=== PATIENT | female | born 1975 | race Caucasian/White ===

== ENCOUNTER 2017-09-22 06:07 | Inpatient (IN) | payer MEDICARE, MEDICAID ==
[2017-09-22] MEDS ORDERED: Acetaminophen 500 MG Tab PO ONE (07:00)
[2017-09-22] MEDS ORDERED: Scopolamine 1.5 MG Transdermal Patch TOP SCH (07:00)
[2017-09-22] MEDS ORDERED: Albuterol/Ipratropium 3.0-0.5 MG/3 ML Neb Soln NEB ONE (07:00)
[2017-09-22] MEDS ORDERED: Dexamethasone 4 MG/ML SDV ONE (07:05)
[2017-09-22] MEDS ORDERED: Rocuronium 50 MG/5 ML Vial ONE (07:05)
[2017-09-22] MEDS ORDERED: Ondansetron 4 MG/2 ML SDV ONE (07:05)
[2017-09-22] MEDS ORDERED: Glycopyrrolate 0.2 MG/ML 5 ML MDV ONE (07:05)
[2017-09-22] MEDS ORDERED: Propofol 200 MG/20 ML SDV ONE (07:05)
[2017-09-22] MEDS ORDERED: Succinylcholine 200 MG/10 ML MDV ONE (07:05)
[2017-09-22] MEDS ORDERED: Neostigmine Methylsulfate 1 MG/ML 5 ML Syringe ONE (07:05)
[2017-09-22] MEDS ORDERED: Meropenem 500 MG SDV ONE (07:09)
[2017-09-22] MEDS ORDERED: Bupivacaine 0.5%/EPINEPHrine 1:200,000 50 ML MDV ONE (07:09)
[2017-09-22] MEDS ORDERED: Dextrose 5%-Lactated Ringers 1,000 ML IV SCH (07:15)
[2017-09-22] MEDS ORDERED: Doxycycline 100 MG in Sodium Chloride 0.9% 100 ML IV ONE (07:30)
[2017-09-22] MEDS ORDERED: HYDROmorphone/Normal Saline 15 MG/30 ML PCA IV PRN (07:31)
[2017-09-22] MEDS ORDERED: Naloxone 0.4 MG/ML SDV IV PRN (07:36)
[2017-09-22] MEDS ORDERED: Lidocaine 2% 100 MG/5 ML Syringe IVPUSH ONE (08:15)
[2017-09-22] MEDS ORDERED: Lidocaine 0.4%/D5W 2 GM/500 ML BAG IV SCH (08:15)
[2017-09-22] MEDS ORDERED: Ropivacaine 41 ML, Dexamethasone 8 MG, EPINEPHrine 0.4 MG, Sodium Chloride 0.9% 36.6 ML NERVRT SCH ×4 (08:15)
[2017-09-22] MEDS ORDERED: Ketamine 500 MG/5 ML MDV IV SCH (08:15)
[2017-09-22] MEDS ORDERED: hydrOXYzine HCl 100 MG/2 ML SDV IM ONE (09:45)
[2017-09-22] MEDS ORDERED: Labetalol 20 MG/4 ML Syringe IVPUSH PRN (11:00)
[2017-09-22] MEDS ORDERED: Ondansetron 4 MG/2 ML SDV IVPUSH PRN (11:00)
[2017-09-22] MEDS ORDERED: diphenhydrAMINE 50 MG/ML SDV IVPUSH PRN (11:00)
[2017-09-22] MEDS ORDERED: hydrOXYzine HCl 100 MG/2 ML SDV IM PRN (11:00)
[2017-09-22] MEDS ORDERED: Metoclopramide 10 MG/2 ML SDV IVPUSH PRN (11:00)
[2017-09-22] MEDS ORDERED: Albuterol/Ipratropium 3.0-0.5 MG/3 ML Neb Soln INH PRN (11:00)
[2017-09-22] MEDS: Albuterol/Ipratropium 3.0-0.5 MG/3 ML Neb Soln INH SCH ×3 (11:30→20:09)
[2017-09-22] MEDS: Dextrose 5%-Lactated Ringers 1,000 ML IV SCH ×2 (11:43→22:17)
[2017-09-22] MEDS ORDERED: Pantoprazole 40 MG Vial IVPUSH SCH (13:00)
[2017-09-22] MEDS: Sodium Ferric Gluconate Cmplex 250 MG in Sodium Chloride 0.9% 100 ML IV SCH (13:50)
[2017-09-22] MEDS ORDERED: MVI, Adult with Vitamin K 10 ML, Thiamine 100 MG, Chromium/Copper/Mang/Selen/Zn 1 ML in... IV SCH ×4 (16:00)
[2017-09-22] MEDS: Acetaminophen Soln 650 MG/20.3 ML UD Cup PO SCH ×2 (16:26→21:11)
[2017-09-22] MEDS: Doxycycline 100 MG in Sodium Chloride 0.9% 100 ML IV SCH (18:16)
[2017-09-22] MEDS: Heparin Sodium 5,000 Units/ML Vial SUBCUT SCH (19:24)
[2017-09-22] MEDS: Nortriptyline 10 MG Cap PO SCH (20:13)
[2017-09-23] MEDS ORDERED: Iohexol 647 MG/ML 50 ML SDV PO STA (03:24)
[2017-09-23] MEDS: Dextrose 5%-Lactated Ringers 1,000 ML IV SCH ×2 (04:07→11:13)
[2017-09-23] MEDS: Acetaminophen Soln 650 MG/20.3 ML UD Cup PO SCH (04:08)
[2017-09-23] MEDS: Doxycycline 100 MG in Sodium Chloride 0.9% 100 ML IV SCH ×2 (05:44→18:04)
[2017-09-23] MEDS: Albuterol/Ipratropium 3.0-0.5 MG/3 ML Neb Soln INH SCH ×4 (07:10→21:25)
[2017-09-23] MEDS: Heparin Sodium 5,000 Units/ML Vial SUBCUT SCH ×2 (07:19→19:26)
[2017-09-23] MEDS: carBAMazepine 200 MG TAB.ER PO SCH (08:27)
[2017-09-23] MEDS: FLUoxetine 20 MG Cap PO SCH (08:27)
[2017-09-23] MEDS: SCOPOLAMINE PATCH CHECK TOP SCH (08:28)
--- NOTE | 2017-09-23 08:29 | PN ---
DATE OF SERVICE: 09/23/2017 SUBJECTIVE: Elizabeth is postop day #1. Her vital signs have been normal. Pain controlled, up ambulating. Oral intake 200. She has been on ice chips. TIMOTHY drain put out 10 mL of a pink serosanguineous drainage. Urine output 3700. REVIEW OF SYSTEMS: Remainder of review of systems negative for any pertinent positives and negatives. OBJECTIVE: GENERAL: Elizabeth Sosa is a 42-year-old female. VITAL SIGNS: TPR is 96.2, 68, 16, and blood pressure 117/60. HEENT: Negative. NECK: Supple. HEART: Regular rate and rhythm. LUNGS: Clear. ABDOMEN: Dressings dry and intact. Abdominal binder is on. TIMOTHY drain is as above. EXTREMITIES: SCDs are on, and there is no peripheral edema. ASSESSMENT: Exploratory laparotomy with revision of the JJ component of the Lennox-en-Y gastric bypass surgery, reduction of small bowel volvulus and closure of internal hernia for small bowel volvulus and fixed stricture of the JJ. Date of surgery, 09/22/2017; Maicol Polanco MD. PLAN: 1. Full liquid diet. 2. Discontinue Tylenol. 3. Decrease IV to 100 mL/hour. 4. We will evaluate p.r.n. or in a.m. Inez Swann PA-C /[id number]
--- NOTE | 2017-09-23 09:25 | CR ---
Status post Lennox-en-Y contrast within small bowel loops. These are evident within the pelvis. No colleen s leakage.
[2017-09-23] MEDS ORDERED: Pantoprazole 40 MG Tab.CR PO SCH (11:30)
[2017-09-23] MEDS: Sodium Ferric Gluconate Cmplex 250 MG in Sodium Chloride 0.9% 100 ML IV SCH (14:18)
[2017-09-23] MEDS ORDERED: MVI, Adult with Vitamin K 10 ML, Thiamine 100 MG, Chromium/Copper/Mang/Selen/Zn 1 ML in... IV SCH ×4 (16:00)
[2017-09-23] MEDS: Acetaminophen/oxyCODONE 325-5 MG Tab PO PRN (19:25)
[2017-09-23] MEDS: Nortriptyline 10 MG Cap PO SCH (21:20)
[2017-09-23] MEDS: Pantoprazole 40 MG Tab.CR PO SCH (21:26)
[2017-09-24] MEDS: Acetaminophen/oxyCODONE 325-5 MG Tab PO PRN ×3 (05:46→20:42)
[2017-09-24] MEDS: Albuterol/Ipratropium 3.0-0.5 MG/3 ML Neb Soln INH SCH ×4 (07:04→20:42)
[2017-09-24] MEDS: Heparin Sodium 5,000 Units/ML Vial SUBCUT SCH ×2 (08:07→20:36)
[2017-09-24] MEDS: carBAMazepine 200 MG TAB.ER PO SCH (08:08)
[2017-09-24] MEDS: FLUoxetine 20 MG Cap PO SCH (08:08)
[2017-09-24] MEDS: SCOPOLAMINE PATCH CHECK TOP SCH (08:08)
[2017-09-24] MEDS ORDERED: Cyanocobalamin (Vitamin B12) 1,000 MCG/ML SDV IM ONE (09:00)
[2017-09-24] MEDS: Magnesium Hydroxide 400 MG/5 ML Susp 30 ML Cup PO SCH ×2 (09:22→20:36)
[2017-09-24] MEDS: Bisacodyl 5 MG Tab PO SCH ×2 (09:22→20:36)
[2017-09-24] MEDS ORDERED: Ondansetron 4 MG Tab.DIS PO PRN (19:25)
[2017-09-24] MEDS: Nortriptyline 10 MG Cap PO SCH (20:36)
[2017-09-24] MEDS: Pantoprazole 40 MG Tab.CR PO SCH (20:36)
[2017-09-25] MEDS ORDERED: Scopolamine 1.5 MG Transdermal Patch TRDERM SCH (00:30)
[2017-09-25] MEDS ORDERED: Dextrose 5%-Lactated Ringers 1,000 ML IV SCH (00:30)
[2017-09-25] MEDS ORDERED: Sodium Chloride 0.9% 10 ML Syringe FLUSH PRN (00:34)
[2017-09-25] MEDS: Metoclopramide 10 MG/2 ML SDV IVPUSH SCH ×5 (00:59→23:03)
[2017-09-25] MEDS ORDERED: HYDROmorphone/Normal Saline 15 MG/30 ML PCA IV SCH (04:00)
[2017-09-25] MEDS: Ondansetron 4 MG/2 ML SDV IVPUSH PRN ×2 (04:26→12:34)
[2017-09-25] MEDS ORDERED: Naloxone 0.4 MG/ML SDV IV PRN (07:15)
[2017-09-25] MEDS ORDERED: HYDROmorphone/Normal Saline 15 MG/30 ML PCA IV PRN (07:15)
[2017-09-25] MEDS: Albuterol/Ipratropium 3.0-0.5 MG/3 ML Neb Soln INH SCH ×4 (07:35→20:55)
[2017-09-25] MEDS: Heparin Sodium 5,000 Units/ML Vial SUBCUT SCH ×2 (07:46→20:55)
[2017-09-25] MEDS: FLUoxetine 20 MG Cap PO SCH (09:47)
[2017-09-25] MEDS: Magnesium Hydroxide 400 MG/5 ML Susp 30 ML Cup PO SCH ×2 (09:48→20:47)
[2017-09-25] MEDS: SCOPOLAMINE PATCH CHECK TOP SCH (09:48)
[2017-09-25] MEDS: carBAMazepine 200 MG TAB.ER PO SCH (09:49)
[2017-09-25] MEDS: methylPREDNISolone Sodium Succinate 125 MG/2 ML SDV IVPUSH SCH ×2 (09:49→16:45)
--- NOTE | 2017-09-25 10:47 | PN ---
DATE OF SERVICE: 09/24/2017 The patient has been afebrile with stable vital signs. Oral intake has been fairly good. Her IV came out. We will switch over to oral Percocet for pain and we will get her in the shower today to get some bowel stimulation. She may be ready for discharge home tomorrow. Maicol Polanco MD /[id number]
[2017-09-25] MEDS: Dextrose 5%-Lactated Ringers 1,000 ML IV SCH ×2 (10:59→19:28)
[2017-09-25] MEDS: Bisacodyl 10 MG Supp RECTAL SCH ×2 (12:28→20:55)
[2017-09-25] MEDS: Bisacodyl 5 MG Tab PO SCH (16:49)
[2017-09-25] MEDS: Nortriptyline 10 MG Cap PO SCH (20:47)
[2017-09-25] MEDS: Pantoprazole 40 MG Tab.CR PO SCH (20:47)
[2017-09-25] MEDS ORDERED: Pantoprazole 40 MG Vial IVPUSH SCH (21:00)
[2017-09-26] MEDS: methylPREDNISolone Sodium Succinate 125 MG/2 ML SDV IVPUSH SCH ×3 (00:47→16:22)
[2017-09-26] MEDS: Metoclopramide 10 MG/2 ML SDV IVPUSH SCH ×3 (05:20→16:22)
[2017-09-26] MEDS: Heparin Sodium 5,000 Units/ML Vial SUBCUT SCH ×2 (07:39→21:08)
[2017-09-26] MEDS: Albuterol/Ipratropium 3.0-0.5 MG/3 ML Neb Soln INH SCH ×4 (07:48→21:15)
--- NOTE | 2017-09-26 08:41 | PN ---
DATE OF SERVICE: 09/26/2017 SUBJECTIVE: Elizabeth has had no further nausea. Did have a moderate-sized bowel movement. Oral intake yesterday was 300. Her last emesis was yesterday. She states her pain is controlled. She has been up ambulating. Denies any other associated signs and symptoms. OBJECTIVE: GENERAL: Elizabeth Sosa is a 42-year-old female. She is alert and orientated. Color pale. VITAL SIGNS: TPR 98.2, 50, 16. Blood pressure 101/59. HEENT: Negative. NECK: Supple. HEART: Regular rate and rhythm. LUNGS: Clear. ABDOMEN: Soft, slightly distended and normally tender. EXTREMITIES: SCDs are on and no peripheral edema. ASSESSMENT: Exploratory laparotomy with revision of the JJ component of the Lennox-en-Y gastric bypass surgery. Reduction of small bowel volvulus and closure of internal hernia for small bowel volvulus and fixed stricture of the JJ. Date of surgery 09/22/2017, Maicol Polanco MD. PLAN: 1. Sips of clear liquids. Gradually increase clear liquids as tolerated. 2. Discontinue Dulcolax suppository. 3. We will evaluate p.r.n. or in a.m. Inez Swann PA-C /[id number]
--- NOTE | 2017-09-26 08:53 | PN ---
DATE OF SERVICE: 09/25/2017 The patient has been afebrile with stable vital signs. Yesterday evening, she began having some nausea and then had two emeses of bilious material. This would imply at least a partial obstruction at the likely outlet of the new jejunojejunostomy, causing a backup of bile into the Lennox limb. Her abdominal x-ray does not show any massive distention or backup of air into the biliopancreatic limb or bypassed stomach. It shows a fair bit of air within the colon. Her abdomen otherwise is not overly distended and relatively soft. As I suspect, there is primarily backing up into the Lennox limb and will go onto just some ice chips for today for oral intake. I think we will try a course of Solu-Medrol IV to see if we can decrease some of the swelling at that anastomosis and repeat an abdominal x-ray tomorrow morning. We will give her a baseline IV rate of 125 mL at this point and recheck some labs in morning as well. Maicol Polanco MD /[id number]
--- NOTE | 2017-09-26 09:07 | OR ---
DATE OF PROCEDURE: 09/22/2017 PREOPERATIVE DIAGNOSIS: Probable small bowel volvulus. POSTOPERATIVE DIAGNOSES: 1. Small bowel volvulus with a fixed stricture at jejunojejunostomy. 2. Meckel's diverticulum with thin luminal base. OPERATIVE PROCEDURE: Exploratory laparotomy with: 1. Revision of jejunojejunostomy, component of Lennox-en-Y gastric bypass (34638). 2. Reduction of small bowel volvulus and closure of internal hernia (94048). 3. Meckel's diverticulectomy (26782). ANESTHESIA: General. PREHEMMER: Inez Swann PA-C, and LAKESHIA Almendarez. INDICATION FOR PROCEDURE: A 42-year-old female status post Lennox-en-Y gastric bypass, presenting with some chronic postprandial abdominal pain. A CT scan was obtained, which was suggestive of a small bowel volvulus. Plan is to proceed with an exploratory laparotomy and reduction of volvulus with bowel resection as indicated. Potential risks including bleeding, infection, possible recurrence of the problem over time, leaks from any GI tract closures that might be required, as well as possibility of cardiopulmonary, septic, or hemorrhagic complications leading to were discussed, and the patient wishes to proceed. DETAILS OF PROCEDURE: The patient was taken to the operating room and placed in a supine position. After general endotracheal anesthesia was induced, using ultrasound guidance, bilateral subcostal transversus abdominis plane blocks were placed using standard solution with continuous ultrasound guidance. A Elena catheter was inserted and then the abdomen prepped and draped. A midline incision from the umbilicus to roughly a handbreadth toward the xiphoid was then made and carried down through the skin and subcutaneous tissue and the midline fascia. Upon entering the peritoneal cavity, a significant portion of the small bowel was somewhat dusky in appearance with some obvious venous hypertension. The small bowel at this point was then identified at the ileocecal valve, and the volvulus was then gradually reduced. Once this was reduced, all the bowel appeared to be clearly viable. There was a fixed stricturing, due to probably some chronic angulation at the point where the Lennox limb entered the jejunojejunostomy. It was felt this area needed to be revised to avoid further problems with partial obstructive symptoms. The 3 components of the jejunojejunostomy were then divided with RAVI hill loads and the underlying mesentery with mesenteric loads and a section of small bowel and delivered from the field. The small bowel that had been the distalmost Lennox limb was then anastomosed to the small bowel that had been the origin of the common limb with a [id number] enteroenterostomy with internal firing of the Endo RAVI 60 mm stapler. The common opening was then closed transversely with the same stapler and the mesenteric defect then closed with a 3-0 Vicryl stitch. The new Lennox-en-Y jejunojejunostomy was then completed roughly 20 cm distal to the initial anastomosis with the same sequence of oksana. In this case, the mesenteric defect was closed with a 2-0 silk stitch, as this would be a closure that needed to be somewhat more permanent and otherwise prone to recurrent volvulus formation. During the course of the small bowel inspection, the patient was noted to have a Meckel's diverticulum with standard distance of around 2 feet from the ileocecal valve. This had a fairly thin base and was felt to be at risk for Meckel's diverticulitis over time. Given this, it was then divided flush with the underlying small bowel in a transverse orientation with no luminal narrowing of the primary course of small bowel, confirmed at the conclusion of its removal. This was done with a RAVI hill load as well. At that point, no further problems were noted. The limb lengths were at this point mapped out with the Lennox limb being 150 cm, the common limb 250 cm, and the biliopancreatic limb 80 cm. This was felt to be a satisfactory set up as far as the limb lengths, given the patient's desire to loose a little bit more in the way of weight and a total alimentary length now of around 400 cm. The midline fascia was then approximated with a #2 Vicryl stitch. The incision was then anesthetized at the fascia level with 0.5% Marcaine. A Charlie-Hopson drain was then placed through a stab wound inferior to the main incision and the incision then closed with 3-0 and 4-0 Vicryl stitch deep and oksana for the skin. Dressing was applied. The patient was taken to the recovery room in satisfactory condition. There were no evident complications. Physician mail handler assistant, Inez Swann, played an essential role in assisting in this case, helping to position the patient, retract structures as needed, as well as suturing and cutting sutures when indicated. Her presence improved patient safety and decreased the operative time. Maicol Polanco MD /[id number]
--- NOTE | 2017-09-26 09:27 | CR ---
Abdomen 2V AP Flat Upright CLINICAL HISTORY: Postop nausea and vomiting FINDINGS: No free air is identified. There is diffuse small bowel distention which is increased since the the study from 09/23/2017. There is contrast in the right colon which was ingested on 09/23/2017. Th ere are scattered air-fluid levels. Surgical drains are in place. No free air is identified. There is some patchy atelectasis at the left lung base. IMPRESSION: Status post recent X surgery. Small bowel distention with scattered air-fluid levels. This may represent postoperative ileus. Inter flavio small bowel obstruction is felt less likely. Previously ingested barium is in the right colon
[2017-09-26] MEDS: Magnesium Hydroxide 400 MG/5 ML Susp 30 ML Cup PO SCH ×2 (09:35→21:00)
[2017-09-26] MEDS: SCOPOLAMINE PATCH CHECK TOP SCH (09:36)
[2017-09-26] MEDS: FLUoxetine 20 MG Cap PO SCH (09:36)
[2017-09-26] MEDS: carBAMazepine 200 MG TAB.ER PO SCH (09:36)
--- NOTE | 2017-09-26 10:22 | CR ---
CHEST: 2 view CLINICAL HISTORY:Postop nausea and vomiting COMPARISON:None FINDINGS: There is a right perihilar density in the lower lobe which is likely subsegmental atelecta sis. There is some mild patchy density in the right suprahilar region which may represent infiltrate or atelectasis There is patchy left infrahilar density which may be atelectasis or infiltrate. There is some minimal left effusion. IMPRESSION: Right perihilar density likely subsegmental atelectasis Minimal right suprahilar density may represent atelectasis or infiltrate Left lower lobe density may represent atelectasis or pneumonic infiltrate. Short-term follow-up recommended
[2017-09-26] MEDS: Dextrose 5%-Lactated Ringers 1,000 ML IV SCH (11:20)
--- NOTE | 2017-09-26 11:44 | CR ---
Abdomen 2V AP Flat Upright CLINICAL HISTORY: Postop nausea and vomiting FINDINGS: There is persistent bibasilar airspace disease left greater than right. The no free air is identified. There is contrast seen throughout the colon. This is advanced since the prior day study. There is some mild nonspecific small bowel distention IMPRESSION: Decrease small bowel distention. Contrast is seen passing through the entire colon consis tent with resolving postop ileus Persistent bibasilar airspace disease similar to prior study
[2017-09-26] MEDS ORDERED: Pantoprazole 40 MG Vial IVPUSH SCH (21:00)
[2017-09-26] MEDS: Nortriptyline 10 MG Cap PO SCH (21:00)
[2017-09-27] MEDS: Metoclopramide 10 MG/2 ML SDV IVPUSH SCH ×3 (00:09→11:19)
[2017-09-27] MEDS: methylPREDNISolone Sodium Succinate 125 MG/2 ML SDV IVPUSH SCH ×2 (00:14→08:59)
[2017-09-27] MEDS: Dextrose 5%-Lactated Ringers 1,000 ML IV SCH ×2 (03:50→05:55)
--- NOTE | 2017-09-27 06:56 | PCM.SURGPN ---
- General Info Date of Service: 09/27/17 Date of Surgery/Procedure: 09/22/17 POD#: 5 Post-Op Diagnosis: VolVulus K56.2 Functional Status: Reports: Pain Controlled, Ambulating, Urinating - Review of Systems General: Reports: No Symptoms HEENT: Reports: No Symptoms Pulmonary: Reports: No Symptoms Cardiovascular: Reports: No Symptoms Genitourinary: Reports: No Symptoms Skin: Reports: No Symptoms Psychiatric: Reports: No Symptoms - Patient Data Vitals - Most Recent: Last Vital Signs Temp 99.0 F 09/27/17 04:03 Pulse 84 09/27/17 04:03 Resp 16 09/27/17 04:03 BP 114/67 09/27/17 04:03 Pulse Ox 96 09/27/17 04:03 Weight - Most Recent: 181 lb 9.587 oz I&O - Last 24 Hours: Intake & Output 09/26/17 09/26/17 09/27/17 14:59 22:59 06:59 Intake Total 957 665 0077 Output Total 2703 3 Balance 300 -2343 1495 Med Orders - Current: Current Medications Albuterol/Ipratropium (Duoneb 3.0-0.5 Mg/3 Ml) 3 ml INH QIDRT [facility] Last Admin: 09/26/17 21:15 Dose: 3 ml Albuterol/Ipratropium (Duoneb 3.0-0.5 Mg/3 Ml) 3 ml INH ASDIRECTED PRN PRN Reason: BREATHING Carbamazepine (Tegretol Er) 600 mg PO DAILY [facility] Last Admin: 09/26/17 09:36 Dose: 600 mg Fluoxetine HCl (Prozac) 20 mg PO DAILY [facility] Last Admin: 09/26/17 09:36 Dose: 20 mg Heparin Sodium (Porcine) (Heparin Sodium) 5,000 units SUBCUT Q12H [facility] Last Admin: 09/26/17 21:08 Dose: 5,000 units Hydromorphone HCl (Dilaudid [employer] 15 Mg In Ns 30 Ml) 0 mg IV ASDIRECTED PRN; Protocol PRN Reason: PAIN Hydroxyzine HCl (Vistaril) 75 - 100 mg IM Q4H PRN PRN Reason: pain Last Admin: 09/24/17 19:29 Dose: 100 mg Dextrose/Lactated Ringer's (Dextrose 5%-Lactated Ringers) 1,000 mls @ 125 mls/ hr IV ASDIRECTED [facility] Last Admin: 09/27/17 05:55 Dose: 125 mls/hr Labetalol HCl (Normodyne) 5 - 15 mg IVPUSH Q1H PRN PRN Reason: SBP over 160 OR DBP over 95 Magnesium Hydroxide (Milk Of Magnesia) 30 ml PO BID [facility] Last Admin: 09/26/17 21:00 Dose: Not Given Methylprednisolone Sodium Succinate (Solu-Medrol) 60 mg IVPUSH Q8H [facility] Last Admin: 09/27/17 00:14 Dose: 60 mg Metoclopramide HCl (Reglan) 10 mg IVPUSH Q6H [facility] Last Admin: 09/27/17 05:48 Dose: 10 mg Naloxone HCl (Narcan) 0.1 mg IV ASDIRECTED PRN PRN Reason: decreased respiratory rate Scopolamine Patch (Check) 1 each TOP DAILY [facility] Last Admin: 09/26/17 09:36 Dose: Not Given Nortriptyline HCl (Nortriptyline) 10 mg PO BEDTIME [facility] Last Admin: 09/26/17 21:00 Dose: Not Given Ondansetron HCl (Zofran Odt) 4 mg PO Q4H PRN PRN Reason: Nausea/Vomiting Last Admin: 09/24/17 19:36 Dose: 4 mg Ondansetron HCl (Zofran) 4 mg IVPUSH Q4H PRN PRN Reason: Nausea/Vomiting Last Admin: 09/25/17 12:34 Dose: 4 mg Pantoprazole Sodium (Protonix Iv) 40 mg IVPUSH BEDTIME [facility] Last Admin: 09/26/17 21:10 Dose: 40 mg Scopolamine (Transderm-Scop) 1.5 mg TRDERM Q72H [facility] Sodium Chloride (Saline Flush) 10 ml FLUSH ASDIRECTED PRN PRN Reason: Keep Vein Open Discontinued Medications Acetaminophen (Tylenol Extra Strength) 1,000 mg PO ONETIME ONE Stop: 09/22/17 07:01 Last Admin: 09/22/17 07:15 Dose: 1,000 mg Acetaminophen (Tylenol) 650 mg PO Q6H [facility] Last Admin: 09/23/17 04:08 Dose: Not Given Albuterol/Ipratropium (Duoneb 3.0-0.5 Mg/3 Ml) 3 ml NEB ONETIME ONE Stop: 09/22/17 07:01 Last Admin: 09/22/17 07:17 Dose: 3 ml Bisacodyl (Dulcolax) 10 mg PO BID [facility] Last Admin: 09/25/17 16:49 Dose: Not Given Bisacodyl (Dulcolax) 10 mg RECTAL BID [facility] Last Admin: 09/25/17 20:55 Dose: 10 mg Bupivacaine HCl/Epinephrine Bitart (Marcaine 0.5%/Epinephrine 1:200,000) Confirm Administered Dose 50 ml .ROUTE .STK-MED ONE Stop: 09/22/17 07:10 Last Admin: 09/22/17 09:00 Dose: 20 ml Ropivacaine 41 ml/Dexamethasone 8 mg/Epinephrine HCl 0.4 mg/ Sodium Chloride 36.6 ml 0 ml NERVRT ASDIRECTED [facility] Last Admin: 09/22/17 08:48 Dose: 80 syringe Cyanocobalamin (Vitamin B12) 1,000 mcg IM ONETIME ONE Stop: 09/24/17 09:01 Last Admin: 09/24/17 08:09 Dose: 1,000 mcg Dexamethasone (Dexamethasone) Confirm Administered Dose 4 mg .ROUTE .STK-MED ONE Stop: 09/22/17 07:06 Diphenhydramine HCl (Benadryl) 25 - 50 mg IVPUSH Q4H PRN PRN Reason: ITCHING Fentanyl Citrate (Fentanyl) Confirm Administered Dose 500 mcg .ROUTE .STK-MED ONE Stop: 09/22/17 07:07 Glycopyrrolate (Robinul) Confirm Administered Dose 1 mg .ROUTE .STK-MED ONE Stop: 09/22/17 07:06 Hydromorphone HCl (Dilaudid [employer] 15 Mg In Ns 30 Ml) 0 mg IV ASDIRECTED PRN; Protocol PRN Reason: Pain Last Admin: 09/22/17 07:48 Dose: 0.3 mg Hydromorphone HCl (Dilaudid Armed [employer] 15 Mg In Ns 30 Ml) 15 mg IV ASDIRECTED [facility]; Protocol Last Admin: 09/25/17 04:22 Dose: 15 mg Hydroxyzine HCl (Vistaril) 100 mg IM ONETIME ONE Stop: 09/22/17 09:46 Last Admin: 09/22/17 09:37 Dose: 100 mg Lidocaine HCl/Dextrose (Lidocaine 2 Gm/D5w 500 Ml) 2 gm in 500 mls @ 22.5 mls/ hr IV .[id number] [facility] Stop: 09/23/17 06:28 Last Admin: 09/22/17 11:43 Dose: 1.5 mg/min, 22.5 mls/hr Ketamine HCl 100 mg/ Sodium (Chloride) 100 mls @ 17.7 mls/hr IV ASDIRECTED [facility] Doxycycline Hyclate 100 mg/ (Sodium Chloride) 100 mls @ 100 mls/hr IV ONETIME ONE Stop: 09/22/17 08:29 Last Admin: 09/22/17 07:35 Dose: 100 mls/hr Linezolid (Zyvox) Confirm Administered Dose 300 mls @ as directed .ROUTE .STK- MED ONE Stop: 09/22/17 07:10 Dextrose/Lactated Ringer's (Dextrose 5%-Lactated Ringers) 1,000 mls @ 100 mls/ hr IV ASDIRECTED [facility] Last Admin: 09/22/17 07:35 Dose: 100 mls/hr Dextrose/Lactated Ringer's (Dextrose 5%-Lactated Ringers) 1,000 mls @ 100 mls/ hr IV ASDIRECTED [facility] Last Admin: 09/23/17 11:13 Dose: 100 mls/hr Doxycycline Hyclate 100 mg/ (Sodium Chloride) 100 mls @ 100 mls/hr IV Q12H [facility] Stop: 09/24/17 06:59 Last Admin: 09/23/17 18:04 Dose: 100 mls/hr Multivitamins/Minerals 10 ml/Thiamine HCl 100 mg/ Chromium/Copper/Manganese/ Seleni/Zn 1 ml/ Dextrose/Lactated Ringer's 1,012 mls @ 174.826 mls/hr IV DAILY@ 1600 [facility] Last Admin: 09/22/17 16:29 Dose: 174.826 mls/hr Ferric Sodium Gluconate Complex 250 mg/ Sodium Chloride 120 mls @ 60 mls/hr IV Q24H [facility] Stop: 09/23/17 15:59 Last Admin: 09/23/17 14:18 Dose: 60 mls/hr Multivitamins/Minerals 10 ml/Thiamine HCl 100 mg/ Chromium/Copper/Manganese/ Seleni/Zn 1 ml/ Dextrose/Lactated Ringer's 1,012 mls @ 100 mls/hr IV DAILY@ 1600 [facility] Last Admin: 09/23/17 17:56 Dose: 100 mls/hr Dextrose/Lactated Ringer's (Dextrose 5%-Lactated Ringers) 1,000 mls @ 100 mls/ hr IV ASDIRECTED [facility] Last Admin: 09/25/17 01:00 Dose: 100 mls/hr Iohexol (Omnipaque-300) 50 ml PO .ASDIRECTED [facility] Stop: 09/23/17 03:25 Last Admin: 09/23/17 03:37 Dose: 50 ml Ketamine HCl (Ketalar) 29 mg IV ASDIRECTED [facility] Lidocaine HCl (Xylocaine 2%) 100 mg IVPUSH ONETIME ONE Stop: 09/22/17 08:16 Last Admin: 09/22/17 23:52 Dose: Not Given Meropenem (Merrem) Confirm Administered Dose 500 mg .ROUTE .STK-MED ONE Stop: 09/22/17 07:10 Last Admin: 09/22/17 08:50 Dose: 500 mg Metoclopramide HCl (Reglan) 10 mg IVPUSH Q6H PRN PRN Reason: NAUSEA NOT CONTROL BY ZOFRAN Metoclopramide HCl (Reglan) 10 mg IVPUSH Q6H [facility] Last Admin: 09/25/17 05:39 Dose: 10 mg Miscellaneous Information (Remove Patch) 1 ea TRDERM ONETIME ONE Stop: 09/24/17 10:01 Last Admin: 09/24/17 09:22 Dose: Not Given Naloxone HCl (Narcan) 0.1 mg IV ASDIRECTED PRN PRN Reason: decreased respiratory rate Neostigmine Methylsulfate (Neostigmine) Confirm Administered Dose 5 mg .ROUTE .STK-MED ONE Stop: 09/22/17 07:06 Scopolamine Patch (Check) 1 each TOP DAILY [facility] Stop: 09/24/17 11:01 Last Admin: 09/24/17 08:08 Dose: Not Given Ondansetron HCl (Zofran) Confirm Administered Dose 4 mg .ROUTE .STK-MED ONE Stop: 09/22/17 07:06 Ondansetron HCl (Zofran) 4 mg IVPUSH Q4H PRN PRN Reason: Nausea/Vomiting Oxycodone/Acetaminophen (Percocet 325-5 Mg) 1 - 2 tab PO Q4H PRN PRN Reason: Pain Last Admin: 09/24/17 20:42 Dose: 2 tab Pantoprazole Sodium (Protonix Iv) 40 mg IVPUSH Q24H [facility] Last Admin: 09/22/17 13:50 Dose: 40 mg Pantoprazole Sodium (Protonix) 40 mg PO BEDTIME [facility] Last Admin: 09/25/17 20:47 Dose: Not Given Pantoprazole Sodium (Protonix Iv) 40 mg IVPUSH DAILY [facility] Last Admin: 09/25/17 21:43 Dose: 40 mg Propofol (Diprivan 20 Ml) Confirm Administered Dose 200 mg .ROUTE .STK-MED ONE Stop: 09/22/17 07:06 Rocuronium Tram (Zemuron) Confirm Administered Dose 50 mg .ROUTE .STK-MED ONE Stop: 09/22/17 07:06 Scopolamine (Transderm-Scop) 1.5 mg TOP Q72H [facility] Stop: 09/24/17 07:01 Last Admin: 09/22/17 07:17 Dose: 1.5 mg Scopolamine (Transderm-Scop) 1.5 mg TRDERM Q72H [facility] Last Admin: 09/25/17 00:58 Dose: 1.5 mg Succinylcholine Chloride (Quelicin) Confirm Administered Dose 200 mg .ROUTE .STK -MED ONE Stop: 09/22/17 07:06 - Exam General: Alert, Oriented, Cooperative, No Acute Distress HEENT: Pupils Equal, Mucous Membr. Moist/[place] Neck: Supple Lungs: Normal Respiratory Effort Cardiovascular: Regular Rate, Regular Rhythm GI/Abdominal Exam: Soft, Non-Tender Extremities: Normal Inspection, Normal Range of Motion Skin: Warm, Dry, Intact Neurological: No New Focal Deficit Psy/Mental Status: Alert, Normal Affect, Normal Mood - Problem List Review Problem List Initiated/Reviewed/Updated: Yes - My Orders Last 24 Hours: Active Orders 24 hr Category Date Time Status Pantoprazole [ProTONIX IV] Med 09/26/17 21:00 Active 40 mg IVPUSH BEDTIME Scopolamine [Transderm-Scop] Med 09/27/17 21:00 Active 1.5 mg TRDERM Q72H Medication Orders Albuterol/Ipratropium (Duoneb 3.0-0.5 Mg/3 Ml) 3 ml INH QIDRT [facility] Last Admin: 09/26/17 21:15 Dose: 3 ml Admin: 09/26/17 14:48 Dose: 3 ml Admin: 09/26/17 11:05 Dose: 3 ml Admin: 09/26/17 07:48 Dose: 3 ml Admin: 09/25/17 20:55 Dose: 3 ml Admin: 09/25/17 14:00 Dose: 3 ml Admin: 09/25/17 10:50 Dose: Not Given Admin: 09/25/17 07:35 Dose: Not Given Admin: 09/24/17 20:42 Dose: 3 ml Admin: 09/24/17 14:32 Dose: 3 ml Admin: 09/24/17 10:51 Dose: 3 ml Admin: 09/24/17 07:04 Dose: 3 ml Admin: 09/23/17 21:25 Dose: 3 ml Admin: 09/23/17 15:11 Dose: 3 ml Admin: 09/23/17 10:49 Dose: 3 ml Admin: 09/23/17 07:10 Dose: 3 ml Admin: 09/22/17 20:09 Dose: 3 ml Admin: 09/22/17 14:40 Dose: 3 ml Admin: 09/22/17 11:30 Dose: 3 ml Albuterol/Ipratropium (Duoneb 3.0-0.5 Mg/3 Ml) 3 ml INH ASDIRECTED PRN PRN Reason: BREATHING Carbamazepine (Tegretol Er) 600 mg PO DAILY [facility] Last Admin: 09/26/17 09:36 Dose: 600 mg Admin: 09/25/17 09:49 Dose: Not Given Admin: 09/24/17 08:08 Dose: 600 mg Admin: 09/23/17 08:27 Dose: 600 mg Fluoxetine HCl (Prozac) 20 mg PO DAILY [facility] Last Admin: 09/26/17 09:36 Dose: 20 mg Admin: 09/25/17 09:47 Dose: Not Given Admin: 09/24/17 08:08 Dose: 20 mg Admin: 09/23/17 08:27 Dose: 20 mg Heparin Sodium (Porcine) (Heparin Sodium) 5,000 units SUBCUT Q12H [facility] Last Admin: 09/26/17 21:08 Dose: 5,000 units Admin: 09/26/17 07:39 Dose: 5,000 units Admin: 09/25/17 20:55 Dose: 5,000 units Admin: 09/25/17 07:46 Dose: 5,000 units Admin: 09/24/17 20:36 Dose: 5,000 units Admin: 09/24/17 08:07 Dose: 5,000 units Admin: 09/23/17 19:26 Dose: 5,000 units Admin: 09/23/17 07:19 Dose: 5,000 units Admin: 09/22/17 19:24 Dose: 5,000 units Hydromorphone HCl (Dilaudid Armed [employer] 15 Mg In Ns 30 Ml) 0 mg IV ASDIRECTED PRN; Protocol PRN Reason: PAIN Hydroxyzine HCl (Vistaril) 75 - 100 mg IM Q4H PRN PRN Reason: pain Last Admin: 09/24/17 19:29 Dose: 100 mg Dextrose/Lactated Ringer's (Dextrose 5%-Lactated Ringers) 1,000 mls @ 125 mls/ hr IV ASDIRECTED [facility] Last Admin: 09/27/17 05:55 Dose: 125 mls/hr Infusion: 09/27/17 05:55 Dose: 125 mls/hr Admin: 09/27/17 03:50 Dose: 125 mls/hr Infusion: 09/26/17 19:20 Dose: 125 mls/hr Admin: 09/26/17 11:20 Dose: 125 mls/hr Infusion: 09/26/17 03:28 Dose: 125 mls/hr Admin: 09/25/17 19:28 Dose: 125 mls/hr Infusion: 09/25/17 18:59 Dose: 125 mls/hr Admin: 09/25/17 10:59 Dose: 125 mls/hr Labetalol HCl (Normodyne) 5 - 15 mg IVPUSH Q1H PRN PRN Reason: SBP over 160 OR DBP over 95 Magnesium Hydroxide (Milk Of Magnesia) 30 ml PO BID [facility] Last Admin: 09/26/17 21:00 Dose: Not Given Admin: 09/26/17 09:35 Dose: 30 ml Admin: 09/25/17 20:47 Dose: Not Given Admin: 09/25/17 09:48 Dose: Not Given Admin: 09/24/17 20:36 Dose: 30 ml Admin: 09/24/17 09:22 Dose: 30 ml Methylprednisolone Sodium Succinate (Solu-Medrol) 60 mg IVPUSH Q8H [facility] Last Admin: 09/27/17 00:14 Dose: 60 mg Admin: 09/26/17 16:22 Dose: 60 mg Admin: 09/26/17 09:36 Dose: 60 mg Admin: 09/26/17 00:47 Dose: 60 mg Admin: 09/25/17 16:45 Dose: 60 mg Admin: 09/25/17 09:49 Dose: 60 mg Metoclopramide HCl (Reglan) 10 mg IVPUSH Q6H [facility] Last Admin: 09/27/17 05:48 Dose: 10 mg Admin: 09/27/17 00:09 Dose: 10 mg Admin: 09/26/17 16:22 Dose: 10 mg Admin: 09/26/17 11:15 Dose: 10 mg Admin: 09/26/17 05:20 Dose: 10 mg Admin: 09/25/17 23:03 Dose: 10 mg Admin: 09/25/17 16:49 Dose: 10 mg Admin: 09/25/17 11:00 Dose: 10 mg Naloxone HCl (Narcan) 0.1 mg IV ASDIRECTED PRN PRN Reason: decreased respiratory rate Scopolamine Patch (Check) 1 each TOP DAILY [facility] Last Admin: 09/26/17 09:36 Dose: Admin: 09/25/17 09:48 Dose: Nortriptyline HCl (Nortriptyline) 10 mg PO BEDTIME [facility] Last Admin: 09/26/17 21:00 Dose: Not Given Admin: 09/25/17 20:47 Dose: Not Given Admin: 09/24/17 20:36 Dose: Not Given Admin: 09/23/17 21:20 Dose: Not Given Admin: 09/22/17 20:13 Dose: Not Given Ondansetron HCl (Zofran Odt) 4 mg PO Q4H PRN PRN Reason: Nausea/Vomiting Last Admin: 09/24/17 19:36 Dose: 4 mg Ondansetron HCl (Zofran) 4 mg IVPUSH Q4H PRN PRN Reason: Nausea/Vomiting Last Admin: 09/25/17 12:34 Dose: 4 mg Admin: 09/25/17 04:26 Dose: 4 mg Pantoprazole Sodium (Protonix Iv) 40 mg IVPUSH BEDTIME [facility] Last Admin: 09/26/17 21:10 Dose: 40 mg Scopolamine (Transderm-Scop) 1.5 mg TRDERM Q72H [facility] Sodium Chloride (Saline Flush) 10 ml FLUSH ASDIRECTED PRN PRN Reason: Keep Vein Open - Assessment Assessment (Free Text/Narrative):: POD #5 after volvulus reduction. Pain is controlled. Patient is up, ambulating and showering. - Plan Plan (Free Text/Narrative):: 1. Full liquid diet want 1600cc 2. IV to 80 3. Continue Steroids 4. Evaluate prn or in am for discharge
[2017-09-27] MEDS: Albuterol/Ipratropium 3.0-0.5 MG/3 ML Neb Soln INH SCH ×4 (07:12→20:41)
[2017-09-27] MEDS ORDERED: Dextrose 5%-Lactated Ringers 1,000 ML IV SCH (07:15)
[2017-09-27] MEDS: Magnesium Hydroxide 400 MG/5 ML Susp 30 ML Cup PO SCH (08:52)
[2017-09-27] MEDS: FLUoxetine 20 MG Cap PO SCH (08:53)
[2017-09-27] MEDS: Heparin Sodium 5,000 Units/ML Vial SUBCUT SCH ×2 (08:53→20:41)
[2017-09-27] MEDS: SCOPOLAMINE PATCH CHECK TOP SCH (08:53)
[2017-09-27] MEDS: carBAMazepine 200 MG TAB.ER PO SCH (08:53)
[2017-09-27] MEDS ORDERED: Magnesium Hydroxide 400 MG/5 ML Susp 30 ML Cup PO PRN (10:00)
[2017-09-27] MEDS ORDERED: Metoclopramide 10 MG Tab PO SCH (12:00)
[2017-09-27] MEDS: Acetaminophen/oxyCODONE 325-5 MG Tab PO PRN ×2 (14:26→19:13)
[2017-09-27] MEDS: Metoclopramide 10 MG Tab PO SCH ×2 (17:32→23:58)
[2017-09-27] MEDS: Nortriptyline 10 MG Cap PO SCH (20:41)
[2017-09-27] MEDS: predniSONE 20 MG Tab PO SCH (20:41)
[2017-09-27] MEDS ORDERED: Scopolamine 1.5 MG Transdermal Patch TRDERM SCH (21:00)
[2017-09-28] MEDS: Metoclopramide 10 MG Tab PO SCH (06:20)
[2017-09-28] MEDS: Albuterol/Ipratropium 3.0-0.5 MG/3 ML Neb Soln INH SCH ×2 (07:30→10:59)
[2017-09-28 07:50] VITALS: BP 109/63
[2017-09-28] MEDS: SCOPOLAMINE PATCH CHECK TOP SCH (08:12)
[2017-09-28] MEDS: FLUoxetine 20 MG Cap PO SCH (08:13)
[2017-09-28] MEDS: Heparin Sodium 5,000 Units/ML Vial SUBCUT SCH (08:13)
[2017-09-28] MEDS: predniSONE 20 MG Tab PO SCH (08:13)
[2017-09-28] MEDS: carBAMazepine 200 MG TAB.ER PO SCH (08:13)
--- NOTE | 2017-09-28 09:52 | PN ---
DATE OF SERVICE: 09/27/2017 The patient has been afebrile with stable vital signs. Respiratory status appears to be improved and O2 saturations are satisfactory on room air. She tolerated around 600 mL of oral intake yesterday, and we will go up to a full liquid diet today and give her some IV. We will leave the TOP WADDY in place until we get more well-established oral intake. Maicol Polanco MD /[id number]
[2017-09-28] MEDS ORDERED: Pantoprazole 40 MG Tab.CR PO SCH (21:00)
--- NOTE | 2017-09-29 01:42 | DISCH ---
ADMISSION DIAGNOSES: Partial small bowel obstruction, SP Lennox-en-Y gastric bypass surgery, unspecified surgical malabsorption, B12 deficiency, generalized anxiety disorder, recurrent major depression, seizure disorder, chronic bipolar disease. DISCHARGE DIAGNOSES: Exploratory laparotomy with revision of the JJ component of the Lennox- en-Y gastric bypass surgery, reduction of small bowel volvulus and closure of internal hernia for small bowel volvulus and fixed stricture of the JJ. Date of surgery 09/22/2017, Maicol Polanco MD. HISTORY: Elizabeth Sosa is a 42-year-old female who came via ambulance from [place], [place]. After preoperative evaluation and discussion of possible risks and possible complications, she wished to proceed with surgical procedure. HOSPITAL COURSE: Date of surgery was 09/22/2017. She had no operative complications and progressed well until 09/24/2017. She developed some nausea, vomiting, and postop ileus. She was given some Solu-Medrol IV and went back to clear liquids and she was given bowel stimulation and she started having bowel movements and abdominal distention improved. Her activity was good. Pain was well managed and she was able to be discharged to home on 09/28/2017. PHYSICAL EXAMINATION: GENERAL: Elizabeth Sosa is a 42-year-old female. VITAL SIGNS: Height is 5 feet and 6.14 inches. Weight is 181 pounds. TPR 97.3, 77, 16. Blood pressure 109/63. HEENT: Negative. NECK: Supple. HEART: Regular rate and rhythm. LUNGS: Clear. ABDOMEN: [place] intact. She has a midline TIMOTHY drain, has been draining 5 to 10 mL daily of a pink serosanguineous drainage. Abdominal binder has been on. EXTREMITIES: Without peripheral edema. DISPOSITION: Discharged to home. CONDITION: Stable and improving. A followup appointment with Inez Swann PA-C on 10/05/2017 at 10:00 a.m. HOME PRESCRIPTIONS: 1. Percocet 5/325 mg 1 to 2 tablets every 4 hours p.r.n. pain #40. 2. Medrol Dosepak 4 mg take as directed. 3. To resume Tylenol 650 mg every 4 hours p.r.n. pain. 4. Bactroban ointment b.i.d. 5. Tramadol 50 mg q.6 hours p.r.n. pain. Recommend not taking that with her Percocet. 6. She is to resume Ventolin inhaler 2 puffs p.r.n. 7. Prozac 30 mg p.o. daily. 8. Tegretol XR 600 mg daily. 9. Carafate 1 g p.o. q.i.d. before meals and bedtime. 10.Imitrex 25 mg as directed p.r.n. migraine headache. 11.Ranitidine 300 mg at bedtime. 12.AcipHex 20 mg at bedtime. 13.Pamelor (nortriptyline) 10 mg p.o. at bedtime. DIET: Diet after discharge: Step 2 gastric bypass diet without cereal, drink 8 to 10 glasses of water a day. ACTIVITY: 1. As tolerated. No lifting greater than 10 pounds for [address] drive while on narcotic pain medication. Shower/bathing, may shower. No tub bathing for 6 weeks. Keep operative site clean and dry. Wear abdominal binder for 6 weeks and then as tolerated. Use incentive spirometer 10 times every hour while awake for 1 week. 2. Strip, empty, measure, and record TIMOTHY drain 4 times a day and bring record of TIMOTHY drainage to clinic. 3. Notify provider if any fever, increased pain, nausea, or vomiting.
== END 2017-09-28 11:10 | disposition home or self-care (01) | DRG 330 ==
LOC: JP.SDSSCHI 06:07 → JP.SDS 06:07 → EDSTATUS 09:00 → JP.MS 09:45
PROVIDERS: ADMIT Surgery; ATTEND Surgery
PROC: 0DBA0ZX Excision of Jejunum, Open Approach, Diagnostic (ICD-10-PCS; principal; 2017-09-22)
PROC: 0DBB0ZZ Excision of Ileum, Open Approach (ICD-10-PCS; 2017-09-22)
PROC: 0WQF0ZZ Repair Abdominal Wall, Open Approach (ICD-10-PCS; 2017-09-22)
PROC: 0DSA0ZZ Reposition Jejunum, Open Approach (ICD-10-PCS; 2017-09-22)
PROC: 3E0T3BZ Introduction of Anesthetic Agent into Peripheral Nerves and Plexi, Percutaneous Approach (ICD-10-PCS; 2017-09-22)
DX: K56.600 Partial intestinal obstruction, unspecified as to cause (principal); K91.2 Postsurgical malabsorption, not elsewhere classified; F31.89 Other bipolar disorder; K56.699 Other intestinal obstruction unspecified as to partial versus complete obstruction; Q43.0 Meckel's diverticulum (displaced) (hypertrophic); K46.9 Unspecified abdominal hernia without obstruction or gangrene; Z98.84 Bariatric surgery status; Z98.0 Intestinal bypass and anastomosis status; E55.9 Vitamin D deficiency, unspecified; E53.9 Vitamin B deficiency, unspecified; F41.1 Generalized anxiety disorder; G40.909 Epilepsy, unspecified, not intractable, without status epilepticus; K56.7 Ileus, unspecified
CPT/HCPCS: 36415; 71046; 71046-26; 74019; 74019-26; 74240; 74240-26; 80053; 82962; 83735; 84100; 85027; 88304; 88307; 94640; 94762; A9270-GY; C9113; J0171; J0330; J1100; J1170; J1644; J2001; J2020; J2185; J2405; J2704; J2710; J2765; J2795; J2916; J2930; J3010; J3410; J3411; J3420; J7030; J7042; J7050; J7620; Q9967

== ENCOUNTER 2018-10-31 10:10 | Inpatient (IN) | payer OTHER, MEDICARE, MEDICAID ==
[~2018-10-31 10:10] MED LIST: Dexamethasone 4 MG/ML SDV ONE; Glycopyrrolate 0.2 MG/ML 5 ML MDV ONE; Neostigmine Methylsulfate 1 MG/ML 5 ML Syringe ONE; Ondansetron 4 MG/2 ML SDV ONE; Propofol 200 MG/20 ML SDV ONE; Rocuronium 50 MG/5 ML Vial ONE; Succinylcholine 200 MG/10 ML MDV ONE; fentaNYL 250 MCG/5 ML SDV ONE
[2018-10-31] MEDS ORDERED: Meropenem 500 MG SDV ONE (10:16)
[2018-10-31] MEDS ORDERED: Scopolamine 1.5 MG Transdermal Patch TRDERM ONE (10:30)
[2018-10-31] MEDS ORDERED: Celecoxib 200 MG Cap PO ONE (10:30)
[2018-10-31] MEDS ORDERED: Gabapentin 300 MG Cap PO ONE (10:30)
[2018-10-31] MEDS ORDERED: Acetaminophen 500 MG Tab PO ONE (10:30)
[2018-10-31] MEDS: Dextrose 5%-Lactated Ringers 1,000 ML IV SCH ×3 (11:27→23:51)
[2018-10-31] MEDS ORDERED: Albuterol/Ipratropium 3.0-0.5 MG/3 ML Neb Soln NEB ONE (11:30)
[2018-10-31] MEDS ORDERED: Doxycycline 100 MG Vial ONE (11:45)
[2018-10-31] MEDS ORDERED: Doxycycline 100 MG in Sodium Chloride 0.9% 100 ML IV ONE (12:00)
[2018-10-31] MEDS ORDERED: Meropenem 500 MG in Sodium Chloride 0.9% 50 ML IV ONE (12:00)
[2018-10-31] MEDS ORDERED: Ketamine 50 MG in Sodium Chloride 0.9% 49.5 ML IV SCH (12:30)
[2018-10-31] MEDS ORDERED: Lidocaine 0.4%/D5W 2 GM/500 ML BAG IV SCH (12:30)
[2018-10-31] MEDS ORDERED: Ketamine 500 MG/5 ML MDV IV SCH (12:30)
[2018-10-31] MEDS ORDERED: Lidocaine 2% 100 MG/5 ML Syringe IVPUSH SCH (12:30)
[2018-10-31] MEDS ORDERED: fentaNYL 100 MCG/2 ML SDV ONE (13:16)
[2018-10-31] MEDS ORDERED: hydrOXYzine HCl 100 MG/2 ML SDV IM ONE (13:56)
[2018-10-31] MEDS ORDERED: fentaNYL 100 MCG/2 ML SDV IVPUSH ONE (13:57)
[2018-10-31] MEDS ORDERED: Ondansetron 4 MG/2 ML SDV IVPUSH ONE (14:24)
[2018-10-31] MEDS ORDERED: diphenhydrAMINE 50 MG/ML SDV IVPUSH PRN (15:27)
[2018-10-31] MEDS ORDERED: Albuterol/Ipratropium 3.0-0.5 MG/3 ML Neb Soln INH PRN (15:27)
[2018-10-31] MEDS ORDERED: Metoclopramide 10 MG/2 ML SDV IVPUSH PRN (15:27)
[2018-10-31] MEDS ORDERED: Labetalol 20 MG/4 ML Syringe IVPUSH PRN (15:27)
[2018-10-31] MEDS ORDERED: hydrOXYzine HCl 100 MG/2 ML SDV IM PRN (15:27)
[2018-10-31] MEDS ORDERED: Ondansetron 4 MG/2 ML SDV IVPUSH PRN (15:27)
[2018-10-31] MEDS ORDERED: HYDROmorphone 0.5 MG/0.5 ML Syringe IVPUSH PRN (15:37)
[2018-10-31] MEDS ORDERED: HYDROmorphone 1 MG/ML Syringe IV PRN (15:37)
[2018-10-31] MEDS: MVI, Adult with Vitamin K 10 ML, Thiamine 200 MG, Chromium/Copper/Mang/Selen/Zn 1 ML in... IV SCH ×4 (16:21)
[2018-10-31] MEDS: Pantoprazole 40 MG Vial IVPUSH SCH (16:22)
[2018-10-31] MEDS: Acetaminophen 325 MG Tab PO SCH ×3 (16:23→22:36)
[2018-10-31] MEDS: Heparin Sodium 5,000 Units/ML Vial SUBCUT SCH (20:52)
[2018-10-31] MEDS: Albuterol/Ipratropium 3.0-0.5 MG/3 ML Neb Soln INH SCH (20:52)
[2018-10-31] MEDS: Gabapentin 250 MG/5 ML Solution ML 470 ML Bottle PO SCH (20:53)
[2018-10-31] MEDS ORDERED: Lurasidone 40 MG Tab PO SCH (21:00)
[2018-10-31] MEDS: Doxycycline 100 MG in Sodium Chloride 0.9% 100 ML IV SCH (22:29)
[2018-11-01] MEDS ORDERED: Iopamidol 612 MG/ML 50 ML SDV PO STA (02:37)
[2018-11-01] MEDS: Acetaminophen 325 MG Tab PO SCH ×4 (03:38→22:49)
--- NOTE | 2018-11-01 03:53 | CRLCR ---
PRELIMINARY IMPRESSIONS: 1. No evidence of contrast extravasation is noted on 3 static submitted images. 2. Dilated proximal jejunal loop noted measuring 4.8 cm. Postoperative ileus or small bowel obstruction should be considered. 3. Surgical drain is present in the left upper quadrant. Agree with preliminary report. No additional findings. Dictated by: Husam Ibanez MD @ 11/05/2018 17:47:50 (Electronically Signed)
[2018-11-01] MEDS: Dextrose 5%-Lactated Ringers 1,000 ML IV SCH ×2 (05:53→14:07)
[2018-11-01] MEDS ORDERED: Ondansetron 4 MG Tab.DIS PO PRN (07:35)
[2018-11-01] MEDS ORDERED: Albuterol 8 GM Inhaler INH PRN (07:37)
[2018-11-01] MEDS: Albuterol/Ipratropium 3.0-0.5 MG/3 ML Neb Soln INH SCH ×4 (08:13→20:00)
[2018-11-01] MEDS: FLUoxetine 20 MG Cap PO SCH (08:45)
[2018-11-01] MEDS: Celecoxib 200 MG Cap PO SCH (08:45)
[2018-11-01] MEDS: Heparin Sodium 5,000 Units/ML Vial SUBCUT SCH ×2 (08:45→20:00)
[2018-11-01] MEDS: SCOPOLAMINE PATCH CHECK TOP SCH (08:46)
[2018-11-01] MEDS ORDERED: FLUoxetine Solution 20 MG/5 ML ML 120 ML Bottle PO SCH ×2 (09:00)
--- NOTE | 2018-11-01 09:25 | PN ---
DATE OF SERVICE: 11/01/2018 SUBJECTIVE: Elizabeth is postop day 1. She states her pain is controlled. She has had a bowel movement, tolerating sips of water. She has been up ambulating, has no other questions or concerns. OBJECTIVE: GENERAL: Elizabeth is a pleasant 43-year-old female, resting comfortably in bed. VITAL SIGNS: TPR is 98.1, 77, 18. Blood pressure 95/55. HEENT: Negative. NECK: Supple. HEART: Regular rate and rhythm. LUNGS: Clear. ABDOMEN: Dressings dry and intact. Abdominal binder is on. EXTREMITIES: Without peripheral edema. ASSESSMENT: Exploratory laparotomy with lysis of adhesions. 1. Reduction of small bowel volvulus and closure of internal hernia. 2. Revision of the jejunojejunostomy component of the Lennox-en-Y gastric bypass. 3. Repair of incarcerated incisional hernia. 4. Placement of Interceed mesh for partial small bowel obstruction secondary to small bowel volvulus and stricture at the jejunojejunostomy junction and incarcerated incisional hernia and extensive intraabdominal adhesions. Date of surgery 10/31/2018. PLAN: 1. Step 3 gastric bypass diet. 2. Decrease IV to 100 mL per hour. 3. Dilaudid 2 mg 1 to 2 every 4 hours p.r.n. pain. 4. Continue Tylenol 650 mg p.o. q.6 hours scheduled. 5. Zofran ODT 4 mg sublingual q.4 hours p.r.n. nausea and vomiting. 6. Good pulmonary toilet. 7. We will evaluate p.r.n. or in a.m. Inez Swann PA-C /[id number]
[2018-11-01] MEDS: Gabapentin 250 MG/5 ML Solution ML 470 ML Bottle PO SCH ×3 (10:22→20:00)
[2018-11-01] MEDS: Doxycycline 100 MG in Sodium Chloride 0.9% 100 ML IV SCH ×2 (10:23→22:49)
[2018-11-01] MEDS: Pantoprazole 40 MG Vial IVPUSH SCH (15:29)
[2018-11-01] MEDS: MVI, Adult with Vitamin K 10 ML, Thiamine 200 MG, Chromium/Copper/Mang/Selen/Zn 1 ML in... IV SCH ×4 (15:30)
[2018-11-01] MEDS: HYDROmorphone 2 MG Tab PO PRN (19:52)
[2018-11-01] MEDS ORDERED: Lurasidone 40 MG Tab PO SCH (21:00)
[2018-11-02] MEDS: Dextrose 5%-Lactated Ringers 1,000 ML IV SCH (02:22)
[2018-11-02] MEDS: Acetaminophen 325 MG Tab PO SCH ×3 (05:18→15:11)
[2018-11-02] MEDS: Albuterol/Ipratropium 3.0-0.5 MG/3 ML Neb Soln INH SCH ×3 (07:04→14:38)
--- NOTE | 2018-11-02 07:55 | DISCH ---
ADMISSION DIAGNOSES: 1. Partial small bowel obstruction. 2. Status post Lennox-en-Y gastric bypass surgery. 3. Unspecified surgical malabsorption. 4. B12 deficiency. 5. Bipolar disorder. 6. Insomnia. 7. Generalized anxiety disorder. 8. Seizure disorder. 9. Irritable bowel syndrome. 10.Iron deficiency anemia. 11.Vitamin D deficiency. 12.Malaise. 13.Fatigue. DISCHARGE DIAGNOSES: 1. Exploratory laparotomy with lysis of adhesions. 2. Reduction of small bowel volvulus and closure of internal hernia. 3. Revision of the jejunojejunostomy component of the Lennox-en-Y gastric bypass. 4. Repair of incarcerated incisional hernia. 5. Placement of Interceed mesh for partial small bowel obstruction secondary to small bowel volvulus and stricture at the jejunojejunostomy junction and incarcerated incisional hernia and extensive intraabdominal adhesions. Date of surgery: 10/31/2018. Surgeon: Maicol Polanco MD. HISTORY: Elizabeth Sosa is a pleasant 43-year-old female with postprandial abdominal pain. After preoperative evaluation and discussion of possible risks and possible complications, she wished to proceed with surgical procedure. HOSPITAL COURSE: Elizabeth had her surgery on 10/31/2018. She had no operative complications. On postoperative day #1, she was started on a step 3 diet, oral pain medication. She did have a bowel movement, and on postoperative day #2, she was able to be discharged to home without any complications. PHYSICAL EXAMINATION: GENERAL: Elizabeth Sosa is a pleasant 43-year-old female. VITAL SIGNS: Height is 5 feet 6 inches, weight is 198 pounds, BMI is 32. TPR is 97.9, 59, 18, blood pressure 116/71. HEENT: Negative. NECK: Supple. HEART: Regular rate and rhythm. LUNGS: Clear. ABDOMEN: Sut[place] intact. Abdominal binder is on. EXTREMITIES: Without peripheral edema. DISPOSITION: Discharged to home. CONDITION: Stable and improving. FOLLOWUP APPOINTMENT: On 11/07/2018 at 10:15 a.m. at [place], [place]. HOME MEDICATIONS: 1. Tylenol 650 mg q.6 hours p.r.n. pain. 2. Celebrex 200 mg p.o. daily #14. 3. Dilaudid 2 mg q.6 hours p.r.n. severe pain #28. 4. Zofran ODT 4 mg every 4 hours p.r.n. nausea. She is to resume her home medication of: 1. Calcium with vitamin D one daily. 2. B12 injections monthly. 3. B12 sublingual 1000 mcg sublingual daily. 4. Prozac 20 mg daily. 5. Neurontin 300 mg oral 3 times a day. 6. Latuda 20 mg oral at bedtime. 7. Gaviscon liquid 15 mL three times a day with meals. 8. Multivitamin 1 tablet daily. 9. AcipHex 20 mg oral daily. 10.Imitrex 25 mg oral p.r.n. migraine headache. DIET: Step 3 gastric bypass diet. ACTIVITY: No lifting greater than 10 pounds for 6 weeks. Other activity: Walk at least 6 times daily, distance and time as tolerated. Driving: Do not drive for 1 week and while on pain medication. Shower/bathing: May shower. DISCHARGE INSTRUCTIONS: Notify provider if any fever, increased pain, nausea, or vomiting. Wound incision care; keep site clean and dry. Wear abdominal binder for 4 to 6 weeks. SPECIAL INSTRUCTIONS: Use incentive spirometer 10 times every hour while awake.
[2018-11-02] MEDS: Celecoxib 200 MG Cap PO SCH (08:45)
[2018-11-02] MEDS: FLUoxetine 20 MG Cap PO SCH (08:45)
[2018-11-02] MEDS: Heparin Sodium 5,000 Units/ML Vial SUBCUT SCH (08:46)
[2018-11-02] MEDS: Gabapentin 250 MG/5 ML Solution ML 470 ML Bottle PO SCH ×2 (08:47→13:11)
[2018-11-02] MEDS: SCOPOLAMINE PATCH CHECK TOP SCH (08:47)
[2018-11-02] MEDS ORDERED: Cyanocobalamin (Vitamin B12) 1,000 MCG/ML SDV IM ONE (09:00)
[2018-11-02] MEDS: Doxycycline 100 MG in Sodium Chloride 0.9% 100 ML IV SCH (09:05)
[2018-11-02] MEDS: HYDROmorphone 2 MG Tab PO PRN ×2 (09:53→17:05)
[2018-11-02 15:09] VITALS: BP 111/66; PULSE 58
[2018-11-02] MEDS: MVI, Adult with Vitamin K 10 ML, Thiamine 200 MG, Chromium/Copper/Mang/Selen/Zn 1 ML in... IV SCH ×4 (15:10)
[2018-11-02] MEDS: Pantoprazole 40 MG Vial IVPUSH SCH (15:10)
--- NOTE | 2018-11-13 09:39 | OR ---
DATE OF PROCEDURE: 10/31/2018 PREOPERATIVE DIAGNOSIS: Partial small bowel obstruction. POSTOPERATIVE DIAGNOSES: 1. Partial small bowel obstruction associated with: a. Focal small bowel volvulus. b. 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 2. Incarcerated incisional hernia. 3. Extensive intraabdominal adhesions. OPERATIVE PROCEDURES: Exploratory laparotomy with lysis of adhesions. 1. Reduction of small bowel volvulus and closure of internal hernia (41326). 2. Resection of the small bowel involved in stricture at jejunojejunostomy (06153). 3. Repair of incarcerated incisional hernia (90091). 4. Placement of Interceed mesh to limit recurrent adhesion formation between pelvic, abdominal wall, and underlying viscera (50395). ANESTHESIA: General. TECHNICAL EDITOR: Inez Swann PA-C. INDICATION FOR PROCEDURE: This is a 43-year-old status post previous Lennox-en-Y gastric bypass, presenting with postprandial abdominal pain and nausea. She is felt to most likely have a partial small bowel obstruction. At this point, plan is to proceed with a limited laparotomy with lysis of adhesions, reduction of any volvulus likely present, certainly possible bowel resection. Potential risks including bleeding, infection, injury to underlying viscera, possible leaks from any GI tract closure, recurrence of bowel obstruction over time, as well as remote possibility of cardiopulmonary, septic, or hemorrhagic complications leading to were discussed, and the patient wishes to proceed. DETAILS OF PROCEDURE: The patient was taken to the operating room. After general endotracheal anesthesia was induced, a Elena catheter was inserted, which was removed at the end of the procedure, and the abdomen was prepped and draped. A midline incision from the umbilicus roughly a handsbreadth toward the xiphoid was made, carried down through the full- thickness abdominal cavity. Quite a bit in the way of adhesions were present between the omentum, some areas of small bowel, and the anterior abdominal wall. These were taken down and there were also some pelvic adhesions between the omentum and the left pelvic sidewall, which likewise were taken down with a combination of blunt and cautery dissection. Initial inspection of the bowel revealed an area of volvulus involving the jejunojejunostomy rotating from a left to right direction between the leaves of the jejunojejunostomy. This was reduced and that mesenteric defect was subsequently closed with a 2-0 silk stitch. Upon inspection of the bowel at that point, there appeared to be some stricturing at the level, where the Lennox limb entered the jejunojejunostomy. This area was then therefore resected dividing the Lennox limb flush with the jejunojejunostomy and then a few centimeters proximal both with RAVI oksana and the underlying mesentery divided with RAVI oksana as well. GI tract continuity was then established with anastomosis between the Lennox limb and the bowel roughly 20 cm distal to the previous jejunojejunostomy with a [id number] enteroenterostomy using 60 mm stapler internally and the common opening closed transversely as well. The mesenteric defect was then closed with 2-0 silk stitch. The area of the mid abdomen was then inspected. No further problems were noted. It was notable that upon entering the abdomen, the patient was noted to have an incarcerated incisional hernia containing some preperitoneal fat and a kind of omentum, this was reduced during the course of opening the abdomen. To limit recurrent adhesion formation, Interceed mesh was then placed down toward the pelvic area and then up against the abdominal wall including underneath the incision in order to displace those surfaces from the underlying viscera to limit recurrent adhesion formation. The midline fascia was then approximated with #2 Vicryl stitch, which included repair of the incisional hernia, and the subcutaneous tissue was approximated with 2 layers of 3-0 Vicryl stitch and the skin with oksana. After exiting the abdomen, bilateral transversus abdominis plane blocks had been placed and the incision was now anesthetized with some 0.5% Marcaine mixed with lidocaine to augment postoperative pain control. The patient was taken to the recovery room in satisfactory condition. Physician retail store assistant, Inez Swann, played an essential role in assisting in this case helping to position the patient, retract structures as needed, as well as suturing and cutting sutures when indicated. Her presence improved patient safety and decreased operative time. Maicol Polanco MD /[id number]
== END 2018-11-02 17:25 | disposition home or self-care (01) | DRG 330 ==
LOC: JP.SDSSCHI 10:10 → JP.SDS 10:10 → JP.MS 13:40 → EDSTATUS 15:55
PROVIDERS: ADMIT Surgery; ATTEND Surgery
PROC: 0DQV0ZZ Repair Mesentery, Open Approach (ICD-10-PCS; principal; 2018-10-31)
PROC: 0DS80ZZ Reposition Small Intestine, Open Approach (ICD-10-PCS; 2018-10-31)
PROC: 0DB80ZZ Excision of Small Intestine, Open Approach (ICD-10-PCS; 2018-10-31)
PROC: 0DSA0ZZ Reposition Jejunum, Open Approach (ICD-10-PCS; 2018-10-31)
PROC: 0DNU0ZZ Release Omentum, Open Approach (ICD-10-PCS; 2018-10-31)
PROC: 0DN80ZZ Release Small Intestine, Open Approach (ICD-10-PCS; 2018-10-31)
PROC: 0DNW0ZZ Release Peritoneum, Open Approach (ICD-10-PCS; 2018-10-31)
PROC: 3E0M05Z Introduction of Adhesion Barrier into Peritoneal Cavity, Open Approach (ICD-10-PCS; 2018-10-31)
DX: K56.2 Volvulus (principal); K43.0 Incisional hernia with obstruction, without gangrene; K91.2 Postsurgical malabsorption, not elsewhere classified; K56.51 Intestinal adhesions [bands], with partial obstruction; K66.0 Peritoneal adhesions (postprocedural) (postinfection); K56.699 Other intestinal obstruction unspecified as to partial versus complete obstruction; K46.9 Unspecified abdominal hernia without obstruction or gangrene; K44.9 Diaphragmatic hernia without obstruction or gangrene; Z98.84 Bariatric surgery status; Z98.0 Intestinal bypass and anastomosis status; E53.8 Deficiency of other specified B group vitamins; F41.1 Generalized anxiety disorder; G47.00 Insomnia, unspecified; K58.9 Irritable bowel syndrome, unspecified; D50.9 Iron deficiency anemia, unspecified; E55.9 Vitamin D deficiency, unspecified; G40.909 Epilepsy, unspecified, not intractable, without status epilepticus; F31.9 Bipolar disorder, unspecified; Z86.14 Personal history of Methicillin resistant Staphylococcus aureus infection; Z88.1 Allergy status to other antibiotic agents; Z91.030 Bee allergy status; Z91.040 Latex allergy status; Z88.2 Allergy status to sulfonamides; Z88.8 Allergy status to other drugs, medicaments and biological substances; Z90.710 Acquired absence of both cervix and uterus
CPT/HCPCS: 36415; 74240; 80053; 82962; 83735; 83880; 84100; 85025; 88302; 88307; 94640; A9270-GY; C9113; J0171; J0330; J1100; J1170; J1644; J2001; J2185; J2405; J2704; J2710; J2795; J3010; J3410; J3411; J3490; J7030; J7042; J7050; J7620-GY; Q9967

== ENCOUNTER 2019-05-31 11:00 | Inpatient (IN) | payer MEDICARE, MEDICAID ==
[2019-05-31] MEDS ORDERED: Ondansetron 4 MG/2 ML SDV IVPUSH PRN (12:04)
[2019-05-31] MEDS ORDERED: Acetaminophen 325 MG Tab PO PRN (12:06)
[2019-05-31] MEDS ORDERED: Acetaminophen 650 MG Supp RECTAL PRN (12:06)
[2019-05-31] MEDS: Dextrose 5%-Lactated Ringers 1,000 ML IV SCH ×2 (12:10→21:08)
[2019-05-31] MEDS: Pantoprazole 40 MG Vial IVPUSH SCH (14:23)
[2019-05-31] MEDS: Metoclopramide 10 MG/2 ML SDV IVPUSH SCH ×2 (14:24→21:02)
[2019-06-01] MEDS: Pantoprazole 40 MG Vial IVPUSH SCH (01:07)
[2019-06-01] MEDS: Metoclopramide 10 MG/2 ML SDV IVPUSH SCH ×3 (03:00→14:42)
[2019-06-01] MEDS ORDERED: Albuterol 8 GM Inhaler INH PRN (06:23)
[2019-06-01] MEDS ORDERED: Doxycycline 200 MG in Sodium Chloride 0.9% 100 ML IV ONE (07:28)
[2019-06-01] MEDS ORDERED: Ketamine 500 MG/5 ML MDV IV SCH ×3 (07:30→10:00)
[2019-06-01] MEDS: Dextrose 5%-Lactated Ringers 1,000 ML IV SCH ×2 (07:43→12:59)
[2019-06-01] MEDS ORDERED: SUMAtriptan 50 MG Tab PO PRN (08:15)
[2019-06-01] MEDS ORDERED: FLUoxetine Solution 20 MG/5 ML ML 120 ML Bottle PO SCH (09:00)
[2019-06-01] MEDS: FLUoxetine 20 MG Cap PO SCH (09:05)
[2019-06-01] MEDS: Gabapentin 300 MG Cap PO SCH ×3 (09:05→20:37)
[2019-06-01] MEDS: Doxycycline 200 MG in Sodium Chloride 0.9% 250 ML IV ONE ×2 (09:30→11:07)
[2019-06-01] MEDS ORDERED: Lidocaine 1% with EPINEPHrine 1:100,000 50 ML MDV ONE (09:31)
[2019-06-01] MEDS ORDERED: Meropenem 500 MG SDV ONE (09:31)
[2019-06-01] MEDS ORDERED: Bupivacaine 0.5% 50 ML MDV ONE (09:31)
[2019-06-01] MEDS ORDERED: Ketamine 50 MG in Sodium Chloride 0.9% 49.5 ML IV SCH (10:00)
[2019-06-01] MEDS ORDERED: Dexamethasone 4 MG/ML SDV ONE (11:03)
[2019-06-01] MEDS ORDERED: Propofol 200 MG/20 ML SDV ONE ×2 (11:03→12:20)
[2019-06-01] MEDS ORDERED: Glycopyrrolate 0.2 MG/ML 5 ML MDV ONE (11:03)
[2019-06-01] MEDS ORDERED: Succinylcholine 200 MG/10 ML MDV ONE (11:03)
[2019-06-01] MEDS ORDERED: Ondansetron 4 MG/2 ML SDV ONE (11:03)
[2019-06-01] MEDS ORDERED: Neostigmine Methylsulfate 1 MG/ML 5 ML Syringe ONE (11:03)
[2019-06-01] MEDS ORDERED: Rocuronium 50 MG/5 ML Vial ONE (11:03)
[2019-06-01] MEDS ORDERED: fentaNYL 250 MCG/5 ML SDV ONE ×2 (11:04→11:27)
--- NOTE | 2019-06-01 11:06 | PN ---
DATE OF SERVICE: 06/01/2019 SUBJECTIVE: Elizabeth is n.p.o. She will be having an exploratory laparotomy, case to follow. She had a large BM this morning. Pain has been managed with Tylenol. REVIEW OF SYSTEMS: Remainder of review of systems negative for any pertinent positives and negatives. OBJECTIVE: GENERAL: Elizabeth Sosa is a pleasant 43-year-old female, alert, orientated. VITAL SIGNS: TPR 97.2, 60, 16, and blood pressure 109/62. HEENT: Negative. NECK: Supple. HEART: Regular rate and rhythm. LUNGS: Clear. ABDOMEN: Remains distended, soft. Generalized tenderness. EXTREMITIES: Without peripheral edema. ASSESSMENT: Partial small-bowel obstruction. PLAN: 1. Schedule, have consent form signed for exploratory laparotomy with release of partial small-bowel obstruction and lysis of adhesion and possible small-bowel resection. General anesthesia, TAP block, and ketamine bolus and drip. Surgeon, Maicol Polanco MD. Case to follow on 06/01/2019. 2. Doxycycline 200 mg IV on-call to OR. Orders to be written postoperatively. Inez Swann PA-C /[id number]
[2019-06-01] MEDS ORDERED: hydrOXYzine HCL 100 MG/2 ML SDV IM ONE (12:44)
[2019-06-01] MEDS ORDERED: fentaNYL 100 MCG/2 ML SDV IVPUSH ONE (12:51)
[2019-06-01] MEDS ORDERED: Insulin Lispro 100 Unit/ML 3 ML KwikPen SUBCUT ONE (13:06)
[2019-06-01] MEDS ORDERED: diphenhydrAMINE 50 MG/ML SDV IVPUSH PRN (14:50)
[2019-06-01] MEDS ORDERED: Acetaminophen 500 MG Tab PO PRN (14:50)
[2019-06-01] MEDS ORDERED: HYDROmorphone 1 MG/ML Syringe IV PRN (14:50)
[2019-06-01] MEDS ORDERED: Albuterol/Ipratropium 3.0-0.5 MG/3 ML Neb Soln INH PRN (14:50)
[2019-06-01] MEDS ORDERED: Cyclobenzaprine 10 MG Tab PO PRN (14:50)
[2019-06-01] MEDS ORDERED: hydrOXYzine HCL 100 MG/2 ML SDV IM PRN (14:50)
[2019-06-01] MEDS ORDERED: Labetalol 20 MG/4 ML Syringe IVPUSH PRN (14:50)
[2019-06-01] MEDS ORDERED: Metoclopramide 10 MG/2 ML SDV IVPUSH PRN (14:50)
[2019-06-01] MEDS ORDERED: Insulin Lispro 100 Unit/ML 3 ML KwikPen SUBCUT PRN (14:50)
[2019-06-01] MEDS: Lactated Ringers 1,000 ML IV SCH (14:51)
[2019-06-01] MEDS ORDERED: Dextrose 5%-Lactated Ringers 1,000 ML IV SCH (15:00)
[2019-06-01] MEDS: MVI, Adult with Vitamin K 10 ML, Thiamine 200 MG, Chromium/Copper/Mang/Selen/Zn 1 ML in... IV SCH ×4 (16:02)
[2019-06-01] MEDS: HYDROmorphone 0.5 MG/0.5 ML Syringe IVPUSH PRN (16:03)
[2019-06-01] MEDS: Albuterol/Ipratropium 3.0-0.5 MG/3 ML Neb Soln INH SCH ×2 (16:03→20:42)
[2019-06-01] MEDS ORDERED: Pantoprazole 40 MG Vial IVPUSH SCH (20:00)
[2019-06-01] MEDS: Lurasidone 40 MG Tab PO SCH (20:38)
[2019-06-01] MEDS: Heparin Sodium 5,000 Units/ML Vial SUBCUT SCH (20:42)
[2019-06-01] MEDS: Acetaminophen 500 MG Tab PO SCH (23:11)
[2019-06-01] MEDS: Doxycycline 100 MG in Sodium Chloride 0.9% 100 ML IV SCH (23:12)
[2019-06-02] MEDS: Lactated Ringers 1,000 ML IV SCH ×2 (01:51→12:06)
[2019-06-02] MEDS: HYDROmorphone 0.5 MG/0.5 ML Syringe IVPUSH PRN ×3 (02:00→08:40)
[2019-06-02] MEDS ORDERED: Iopamidol 612 MG/ML 50 ML SDV IV PRN (03:28)
[2019-06-02] MEDS: Acetaminophen 500 MG Tab PO SCH ×3 (05:19→21:39)
[2019-06-02] MEDS: Heparin Sodium 5,000 Units/ML Vial SUBCUT SCH ×2 (08:43→20:27)
[2019-06-02] MEDS: Gabapentin 300 MG Cap PO SCH ×3 (08:43→20:27)
[2019-06-02] MEDS: FLUoxetine 20 MG Cap PO SCH (08:43)
[2019-06-02] MEDS: SCOPOLAMINE PATCH CHECK TOP SCH (10:18)
[2019-06-02] MEDS: Doxycycline 100 MG in Sodium Chloride 0.9% 100 ML IV SCH (10:19)
[2019-06-02] MEDS: Albuterol/Ipratropium 3.0-0.5 MG/3 ML Neb Soln INH SCH ×4 (10:23→20:24)
[2019-06-02] MEDS: oxyCODONE 5 MG Tab PO PRN ×3 (10:24→22:46)
[2019-06-02] MEDS: Docusate Sodium 100 MG Cap PO SCH ×2 (12:11→20:27)
[2019-06-02] MEDS: Magnesium Sulfate/Water 2 GM in Premix Bag 1 BAG IV SCH ×2 (12:12→17:10)
[2019-06-02] MEDS: Bisacodyl 5 MG Tab PO SCH ×2 (12:12→20:27)
[2019-06-02] MEDS: MVI, Adult with Vitamin K 10 ML, Thiamine 200 MG, Chromium/Copper/Mang/Selen/Zn 1 ML in... IV SCH ×4 (15:58)
[2019-06-02] MEDS ORDERED: Pantoprazole 40 MG Delayed-Release Granules 1 Packet PO SCH (16:30)
[2019-06-02] MEDS ORDERED: diphenhydrAMINE 25 MG Cap PO PRN (19:24)
[2019-06-02] MEDS ORDERED: Ondansetron 4 MG Tab.DIS PO PRN (19:26)
[2019-06-02] MEDS ORDERED: Metoclopramide 10 MG Tab PO PRN (19:26)
[2019-06-02] MEDS: Lurasidone 40 MG Tab PO SCH (20:27)
[2019-06-03] MEDS: Acetaminophen 500 MG Tab PO SCH (06:13)
[2019-06-03] MEDS: Albuterol/Ipratropium 3.0-0.5 MG/3 ML Neb Soln INH SCH (07:21)
[2019-06-03 07:33] VITALS: BP 112/72; PULSE 79
[2019-06-03] MEDS ORDERED: Cyanocobalamin (Vitamin B12) 1,000 MCG/ML SDV IM ONE (09:00)
[2019-06-03] MEDS: oxyCODONE 5 MG Tab PO PRN (09:09)
[2019-06-03] MEDS: Heparin Sodium 5,000 Units/ML Vial SUBCUT SCH (09:10)
[2019-06-03] MEDS: Docusate Sodium 100 MG Cap PO SCH (09:11)
[2019-06-03] MEDS: SCOPOLAMINE PATCH CHECK TOP SCH (09:11)
[2019-06-03] MEDS: Gabapentin 300 MG Cap PO SCH (09:11)
[2019-06-03] MEDS: Bisacodyl 5 MG Tab PO SCH (09:11)
[2019-06-03] MEDS: FLUoxetine 20 MG Cap PO SCH (09:13)
--- NOTE | 2019-06-03 13:19 | PN ---
DATE OF SERVICE: 06/02/2019 The patient postop day one from a revision of Lennox-en-Y gastric bypass and other procedures. Clinically, she is doing well at this point. We will switch her over to oral pain medication and go up to a step 3 diet. Her upper GI x-ray looks good, and we will give some bowel stimulation. Magnesium marginally low, and we will supplement that. She may be ready for discharge home tomorrow. Noted her blood sugars are running good, and we will discontinue the Accu-Cheks. Maicol Polanco MD /[id number]
--- NOTE | 2019-06-03 14:40 | DISCH ---
FINAL DIAGNOSES: 1. Partial small bowel obstruction secondary to volvulus in the intussusception of the jejunojejunostomy. 2. Incarcerated incisional hernia. 3. Calcified peritoneal nodule. 4. Distorted small bowel at the end of previous jejunojejunostomy. 5. Extensive intraabdominal adhesions. OPERATIVE PROCEDURE: Exploratory laparotomy with lysis of adhesions and: 1. Reduction of small bowel volvulus, closure of internal hernia. 2. Revision of jejunojejunostomy component of Lennox-en-Y gastric bypass. 3. Separate small bowel resection. 4. Repair of incarcerated incisional hernia. 5. Excision of peritoneal nodule. 6. Placement of Interceed mesh to limit recurrent adhesion formation. SUMMARY: This is a 43-year-old female presenting with recurrent partial small bowel obstruction. At the time of the exploration, the patient was noted to have a volvulus and what appeared to be ongoing intussusception of the jejunojejunostomy. The small bowel was then revised with division of the Lennox limb flush with the previous jejunojejunostomy and reanastomosed roughly 20 cm distal to that. The patient's previous jejunojejunostomy also appeared to be quite distorted following this procedure and this was separately resected and reconstructed. The patient had a calcified peritoneal nodule. This was removed and had quite extensive intraabdominal adhesions along with an incarcerated incisional hernia, this having 2 components, 1 at the lower end and 1 at the upper end of the previous midline incision. The latter was repaired without mesh due to the opening bowel. Postoperatively, the patient has done well at this point and tolerating a step-3 diet. She will be sent home on her usual medications plus Tylenol 1 g p.o. q.i.d. p.r.n. and then oxycodone 5 mg p.o. q.6 hours p.r.n. pain #30, and she will be instructed to stay on a step-3 diet until the first appointment which will be with Inez Swann at [facility] in [place] on 06/12/2019.
--- NOTE | 2019-06-04 08:56 | CR ---
UGI CLINICAL HISTORY: Postbariatric surgery FINDINGS: Patient swallowed water-soluble contrast. It cleared the esophagus. There is no evidence of leakage from the gastric remanent. No obstruction is identified IMPRESSION: Recent bariatric surgery with no evidence of leakage or obstruction
--- NOTE | 2019-06-10 12:48 | OR ---
DATE OF PROCEDURE: 06/01/2019 SURGEON: Maicol Polanco MD PREOPERATIVE DIAGNOSIS: Partial small bowel obstruction. POSTOPERATIVE DIAGNOSES: 1. Partial small bowel obstruction associated with small bowel volvulus and intussusception at jejunojejunostomy. 2. Incarcerated incisional hernia. 3. Calcified peritoneal nodule underlying anterior abdominal wall. 4. Distorted course of small bowel at the site of previous anastomosis. 5. Extensive intraabdominal adhesions. OPERATIVE PROCEDURE: Exploratory laparotomy with lysis of adhesions and: 1. Reduction of small bowel volvulus and closure of internal hernia (20331). 2. Revision of jejunojejunostomy component of Lennox-en-Y gastric bypass (78352). 3. Separate small bowel resection (42688). 4. Repair of incarcerated incisional hernia (65636). 5. Excision of peritoneal nodule (94621). 6. Placement of Interceed mesh to limit recurrent adhesion formation between pelvic and abdominal wall and underlying viscera (49102). ANESTHESIA: General. CASER IN: Inez Swann PA-C. INDICATIONS FOR PROCEDURE: This is a 43-year-old status post previous Lennox-en-Y gastric bypass, presenting with a picture of partial small bowel obstruction and plan is to proceed with exploratory laparotomy with reduction of volvulus and lysis of adhesions, bowel resection as indicated. Potential risks including bleeding, infection, leaks from various GI tract closures, problems with bowel obstruction over time recurring, as well as possibility of cardiopulmonary, septic, or hemorrhagic complications leading to were all discussed, and the patient wishes to proceed. DETAILS OF PROCEDURE: The patient was taken to operating room. After general endotracheal anesthesia was induced, a Elena catheter was inserted, and the abdomen prepped and draped. The previous upper midline incision was then reused and carried down through the skin and subcutaneous tissue, fascia. Upon entering the peritoneal cavity, fairly extensive adhesions between the omentum and some areas of small bowel in the anterior abdominal wall were taken down. This allowed visualization of the small bowel anatomy. There was an area of volvulus between the leaves of the jejunojejunostomy in a [id number] direction. After this was reduced, the patient was noted to have more or less fixed stricture at the point where the Lennox limb entered the jejunojejunostomy. This was then divided more or less flush with the jejunojejunostomy and the recurrent jejunojejunostomy was then revised at a point roughly 20 cm further distal along what would now be the common limb of small bowel. This was accomplished with internal firing of Endo-RAVI 60 mm stapler. Common opening was closed transversely with the same stapler and angles anastomosed and reinforced with 3-0 Vicryl stitch. Prior to conducting this anastomosis, the area of the volvulus was reduced. At this point, the combined mesenteric defect of the new anastomosis and the older site was closed with a running 2-0 silk stitch to provide some permanency. The patient was noted to have considerable distortion of the course of the small bowel proximal to the original anastomosis, and this was then separately resected with proximal and distal ends being divided with a RAVI stapler and the underlying mesentery with RAVI stapler as well, and that separate resection was then closed with an internal firing of the Endo-RAVI 60 mm stapler, common opening was closed transversely, and the angles anastomosed, and mesenteric defect approximated with some 3-0 Vicryl stitch. At this point, the patient had been noted to have a calcified nodule measuring about 1.5 cm on the underside of the peritoneal cavity. This was excised, and following this, the area where there had been an incisional hernia likely related to previous trocar site in the lower aspect of the incision was then dealt with removal of some of that sac. To limit recurrent adhesion formation, an Interceed mesh was then placed underneath the present incision and from there down toward the pelvic wall. To limit recurrent adhesion formation, the abdomen at that point was irrigated with meropenem-containing saline solution. The midline fascia was then approximated with #2 Vicryl stitch which included some bites extending somewhat below the present incision with hernia that extended from that point somewhat inferiorly. This fascia was closed with #2 Vicryl stitch, subcutaneous tissue with 2 layers of 3-0 and 4-0 Vicryl stitch deep, and oksana for the skin. Bilateral transversus abdominis plane blocks were then placed and the fascia at the incision site was then anesthetized with 0.5% Marcaine mixed with lidocaine. The patient was taken to the recovery room in satisfactory condition. Physician assignment desk assistant, Inez Swann, played an essential role in assisting in this case, helping to position the patient, retract structures as needed, as well as suturing and cutting sutures when indicated. Her presence improved patient safety and decreased the operative time. Maicol Polanco MD /[id number]
== END 2019-06-03 11:00 | disposition home or self-care (01) | DRG 329 ==
LOC: JP.MS 11:00
PROVIDERS: ADMIT Surgery; ATTEND Surgery
PROC: 0DSA0ZZ Reposition Jejunum, Open Approach (ICD-10-PCS; principal; 2019-06-01)
PROC: 0DBA0ZZ Excision of Jejunum, Open Approach (ICD-10-PCS; 2019-06-01)
PROC: 0DNU0ZZ Release Omentum, Open Approach (ICD-10-PCS; 2019-06-01)
PROC: 0WQF0ZZ Repair Abdominal Wall, Open Approach (ICD-10-PCS; 2019-06-01)
PROC: 0DBW0ZZ Excision of Peritoneum, Open Approach (ICD-10-PCS; 2019-06-01)
PROC: 0DB80ZZ Excision of Small Intestine, Open Approach (ICD-10-PCS; 2019-06-01)
PROC: 3E0M05Z Introduction of Adhesion Barrier into Peritoneal Cavity, Open Approach (ICD-10-PCS; 2019-06-01)
DX: K95.89 Other complications of other bariatric procedure (principal); K56.2 Volvulus; K56.51 Intestinal adhesions [bands], with partial obstruction; K43.0 Incisional hernia with obstruction, without gangrene; K92.1 Melena; E78.5 Hyperlipidemia, unspecified; E03.9 Hypothyroidism, unspecified; F32.9 Major depressive disorder, single episode, unspecified; Z90.49 Acquired absence of other specified parts of digestive tract; Z90.710 Acquired absence of both cervix and uterus
CPT/HCPCS: 36415; 74240; 74246-26; 80053; 82728; 82962; 83735; 84100; 85025; 85027; 88302; 88305; 88307; 94640; 94762; A9270-GY; C9113; J0171; J0330; J1100; J1170; J1644; J1815; J2185; J2405; J2704; J2710; J2765; J2795; J3010; J3410; J3411; J3420; J3475; J3490; J7050; J7120; J7121; J7620-GY; Q9967

== ENCOUNTER 2020-07-05 13:24 | Inpatient (IN) | payer OTHER, MEDICARE ==
[2020-07-05] MEDS ORDERED: Iohexol 647 MG/ML 50 ML SDV PO SCH (14:00)
[2020-07-05] MEDS ORDERED: Sodium Chloride 0.9% 100 ML IV SCH (14:30)
[2020-07-05] MEDS ORDERED: Iopamidol 612 MG/ML 100 ML Bottle IV SCH (14:30)
[2020-07-05] MEDS: Sodium Chloride 0.9% 10 ML Syringe FLUSH ONE ×2 (14:55→15:43)
[2020-07-05] MEDS: Pantoprazole 40 MG Vial IVPUSH SCH (14:59)
[2020-07-05] MEDS ORDERED: MVI, Adult with Vitamin K 10 ML, Zinc/Copper/Manganese/Selenium 1 ML, Thiamine 100 MG i... IV ONE ×4 (15:00)
[2020-07-05] MEDS: Ondansetron 4 MG/2 ML SDV IVPUSH PRN (15:06)
--- NOTE | 2020-07-05 16:17 | CRLCT ---
INDICATION: Abdominal pain. Evaluate for small bowel obstruction. TECHNIQUE: CT of abdomen and pelvis performed after IV injection of 100 mL of Isovue-300. COMPARISON: Outside CT abdomen pelvis 05/29/2019. FINDINGS: Report from outside CT 05/29/2019 not available at time of dictation. Moderate osteopenia. Mild elevation right hemidiaphragm. Mild to moderate prominence of both renal pelves and mild prominence of both intrarenal collecting systems slightly more prominent than previous nonspecific. Moderately prominent distention of the urinary bladder could be causing a component of vesicoureteral reflux which could account for the bilateral intrarenal collecting system and renal pelvic findings above. Moderate diffuse fatty infiltration of liver Postoperative changes of esophagojejunostomy gastric bypass. Small amounts of fluid in the excluded stomach and duodenum. Portion of the esophagojejunostomy anastomosis is herniated into the lower chest through the diaphragmatic hiatus and this is slightly more prominent. Mild atelectasis in the left lung base. Stable changes of cholecystectomy. Linear and ill-defined density consist with scarring in the midline anterior abdominal wall diffusely. Small fat and small bowel containing hernia involving the mid abdomen is less prominent than on prior exam. Hysterectomy. Postsurgical changes involving small bowel loops in the abdomen. One of the small bowel loops with postsurgical change in the anterior abdomen is dilated to 4.4 cm in transverse dimension and contains an air-fluid level and is slightly more prominent. Few other small bowel loops in the anterior abdomen are upper limits normal to mildly dilated and contains air-fluid levels. These changes within these small bowel loops are most likely chronic and largely postoperative in nature. A component of an ileus or chronic partial bowel small bowel obstruction are not entirely excluded. If patient`s pain persists, repeat CT with IV contrast and oral Gastrografin would be helpful in further evaluating. No free intraperitoneal air. Wall of portions of the right colon is somewhat prominent due to a likely related incomplete distention. Remainder negative. IMPRESSION: 1. Scattered mild to moderately dilated small bowel loops in the abdomen predominantly anteriorly were present previously on 05/29/2027 with 1 of the most dilated small bowel loops having postoperative changes associated with it. This small bowel loop is slightly more dilated today. Scattered air-fluid levels within the small bowel. I suspect the findings are likely chronic and largely postoperative in nature but cannot exclude a chronic or less likely ongoing component of partial small-bowel obstruction or ileus. If patient`s pain persists, repeat CT with IV contrast and oral Gastrografin could be helpful in further evaluating and excluding an early ongoing small bowel obstruction from chronic changes. 2. Multiple postsurgical changes in the abdomen and pelvis including esophagojejunostomy gastric bypass with a portion of the esophagojejunostomy anastomosis herniated to a greater degree into the lower chest through the diaphragmatic hiatus. 3. Mild to moderate prominence of both renal pelves and mild prominence of both intrarenal collecting systems more prominent t and may be related to component of vesicoureteral reflux due to the urinary bladder distention. 4. Anterior abdominal wall hernia slightly less prominent. Other findings as above. Please note that all CT scans at this facility use dose modulation, iterative reconstruction, and/or weight-based dosing when appropriate to reduce radiation dose to as low as reasonably achievable. Dictated by Carlos Dangelo MD @ Jul 05 2020 4:15PM Signed by Dr. Carlos Dangelo @ Jul 05 2020 4:15PM
[2020-07-05] MEDS: Dextrose 5%-Lactated Ringers 1,000 ML IV SCH (18:06)
[2020-07-06] MEDS: Dextrose 5%-Lactated Ringers 1,000 ML IV SCH ×2 (03:13→09:27)
[2020-07-06] MEDS: Pantoprazole 40 MG Vial IVPUSH SCH (09:24)
[2020-07-06] MEDS: Ondansetron 4 MG/2 ML SDV IVPUSH PRN (22:32)
[2020-07-06] MEDS ORDERED: Acetaminophen 325 MG Tab PO PRN (22:33)
[2020-07-07] MEDS ORDERED: Levofloxacin 500 MG/20 ML SDV ONE (07:05)
[2020-07-07] MEDS ORDERED: fentaNYL 250 MCG/5 ML SDV ONE (07:06)
[2020-07-07] MEDS ORDERED: Propofol 200 MG/20 ML SDV ONE (07:07)
[2020-07-07] MEDS ORDERED: Rocuronium 50 MG/5 ML Vial ONE (07:07)
[2020-07-07] MEDS ORDERED: Glycopyrrolate 0.2 MG/ML 5 ML MDV ONE (07:07)
[2020-07-07] MEDS ORDERED: Succinylcholine 200 MG/10 ML MDV ONE (07:07)
[2020-07-07] MEDS ORDERED: Dexamethasone 4 MG/ML SDV ONE (07:07)
[2020-07-07] MEDS ORDERED: Ondansetron 4 MG/2 ML SDV ONE (07:07)
[2020-07-07] MEDS ORDERED: Neostigmine Methylsulfate 1 MG/ML 5 ML Syringe ONE (07:07)
[2020-07-07] MEDS ORDERED: Meropenem 500 MG SDV ONE (07:27)
[2020-07-07] MEDS ORDERED: Levofloxacin/Dextrose 5%-Water 500 MG in Premix Bag 1 BAG IV ONE (08:00)
[2020-07-07] MEDS ORDERED: Magnesium Sulfate 3.8 GM in Sodium Chloride 0.9% 250 ML IV ONE (09:00)
[2020-07-07] MEDS ORDERED: Ropivacaine 40 ML, dexAMETHasone 8 MG, EPINEPHrine 0.4 MG, Sodium Chloride 0.9% 37.6 ML NERVRT SCH ×4 (09:00)
[2020-07-07] MEDS ORDERED: Ketamine 500 MG/5 ML MDV IV SCH (09:00)
[2020-07-07] MEDS ORDERED: Ketamine 50 MG in Sodium Chloride 0.9% 49.5 ML IV SCH (09:00)
[2020-07-07] MEDS ORDERED: Magnesium Sulfate 2.4 GM in Sodium Chloride 0.9% 100 ML IV SCH (09:00)
[2020-07-07] MEDS ORDERED: Lactated Ringers 1,000 ML ONE (09:14)
[2020-07-07] MEDS ORDERED: Bupivacaine 0.5% 50 ML MDV ONE (09:35)
[2020-07-07] MEDS ORDERED: Lidocaine 1% with EPINEPHrine 1:100,000 50 ML MDV ONE (09:35)
--- NOTE | 2020-07-07 10:19 | PN ---
DATE OF SERVICE: 07/07/2020 SUBJECTIVE: Elizabeth is n.p.o. since midnight. She is scheduled to have an exploratory laparotomy. Her vital signs have been stable. Pain is controlled. She has no questions or concerns. OBJECTIVE: GENERAL: Elizabeth Sosa is a 44-year-old female. VITAL SIGNS: TPR is 97.4, 50, 16, blood pressure 105/58. HEENT: Negative. NECK: Supple. HEART: Regular rate and rhythm. LUNGS: Clear. ABDOMEN: Soft. Minimally tender in all 4 quadrants. EXTREMITIES: Without peripheral edema. ASSESSMENT: Partial small bowel obstruction. PLAN: Orders to be written postoperatively. Inez Swann PA-C /[id number]
[2020-07-07] MEDS ORDERED: HYDROmorphone/Normal Saline 15 MG/30 ML PCA IV PRN (10:21)
--- NOTE | 2020-07-07 10:36 | CR ---
Abdomen 2V AP Flat Upright CLINICAL HISTORY: SBO FINDINGS: There are surgical clips in the epigastric region and right upper quadrant. No free air is identified. There is gaseous distention of small bowel. Gas and feces is seen throughout the colon. IMPRESSION: Postsurgical changes Small bowel distention in a nonspecific pattern. Contrast from prior CT has passed to the right and transverse colon
[2020-07-07] MEDS: Ondansetron 4 MG/2 ML SDV IVPUSH PRN ×3 (10:47→20:16)
[2020-07-07] MEDS ORDERED: Naloxone 0.4 MG/ML SDV IV PRN (11:00)
[2020-07-07] MEDS ORDERED: Loperamide 2 MG Cap PO PRN (11:41)
[2020-07-07] MEDS ORDERED: Labetalol 20 MG/4 ML Syringe IVPUSH PRN (12:00)
[2020-07-07] MEDS ORDERED: Acetaminophen 500 MG Tab PO PRN (12:00)
[2020-07-07] MEDS ORDERED: Calcium Gluconate 10% 1 GM/10 ML SDV IVPUSH PRN (12:00)
[2020-07-07] MEDS ORDERED: diphenhydrAMINE 50 MG/ML SDV IVPUSH PRN (12:00)
[2020-07-07] MEDS ORDERED: Pantoprazole 40 MG Vial IVPUSH SCH (12:00)
[2020-07-07] MEDS ORDERED: Albuterol/Ipratropium 3.0-0.5 MG/3 ML Neb Soln INH PRN (12:00)
[2020-07-07] MEDS: Dextrose 5%-Lactated Ringers 1,000 ML IV SCH ×2 (13:21→23:24)
[2020-07-07] MEDS: Albuterol/Ipratropium 3.0-0.5 MG/3 ML Neb Soln INH SCH ×2 (14:53→22:24)
--- NOTE | 2020-07-07 15:10 | PN ---
DATE OF SERVICE: 07/06/2020 The patient was transferred from hospital yesterday with a picture of small-bowel obstruction. CT scan showed some dilated small-bowel loops. She has had bowel obstruction in the past and states this feels approximately the same. Examination shows moderate distention and mild discomfort. Otherwise, no peritoneal signs. Labs show no major problems. The plan will be to proceed with hydration and exploratory laparotomy tomorrow with lysis of adhesions and bowel resection as indicated. Potential risks were reviewed, and the patient wishes to proceed. Maicol Polanco MD /[id number]
[2020-07-07] MEDS ORDERED: MVI, Adult with Vitamin K 10 ML, Thiamine 200 MG, Zinc/Copper/Manganese/Selenium 1 ML i... IV SCH ×4 (16:00)
[2020-07-07] MEDS: Acetaminophen 500 MG Tab PO SCH ×2 (16:07→21:18)
[2020-07-07] MEDS: Metoclopramide 10 MG/2 ML SDV IVPUSH PRN ×2 (16:11→22:19)
[2020-07-07] MEDS: Heparin Sodium 5,000 Units/ML Vial SUBCUT SCH (18:36)
[2020-07-07] MEDS ORDERED: Lurasidone 40 MG Tab PO SCH (21:00)
[2020-07-08] MEDS: Cyclobenzaprine 10 MG Tab PO PRN ×2 (04:07→13:37)
[2020-07-08] MEDS ORDERED: Iopamidol 612 MG/ML 50 ML SDV IARTIC ONE (04:09)
[2020-07-08] MEDS: Metoclopramide 10 MG/2 ML SDV IVPUSH PRN (04:12)
[2020-07-08] MEDS: Acetaminophen 500 MG Tab PO SCH ×3 (05:08→21:29)
[2020-07-08] MEDS: Heparin Sodium 5,000 Units/ML Vial SUBCUT SCH ×2 (05:10→18:21)
[2020-07-08] MEDS: Dextrose 5%-Lactated Ringers 1,000 ML IV SCH (05:50)
[2020-07-08] MEDS: Albuterol/Ipratropium 3.0-0.5 MG/3 ML Neb Soln INH SCH ×4 (07:12→21:33)
[2020-07-08] MEDS ORDERED: Dextrose 5%-Lactated Ringers 1,000 ML IV SCH (07:23)
[2020-07-08] MEDS: HYDROmorphone 2 MG Tab PO PRN ×3 (07:42→21:30)
--- NOTE | 2020-07-08 09:07 | CR ---
UGI Limited HISTORY: Postbariatric surgery FINDINGS: Patient swallowed water-soluble contrast. Upright views of the abdomen show no evidence of extravasation or obstruction. IMPRESSION: Status post bariatric surgery revision No extravasation or obstruction seen
--- NOTE | 2020-07-08 09:13 | PN ---
DATE OF SERVICE: 07/08/2020 SUBJECTIVE: Elizabeth Sosa is postoperative day 1. She did have an episode of nausea which was adequately treated with Ativan. Oral intake 175. Urine output via Elena catheter was 3525. Pain is controlled with the TRIM MOUNTER. Remainder of review of systems negative for any pertinent positives and negatives. OBJECTIVE: GENERAL: Elizabeth Sosa is a pleasant 44-year-old female. She is quite sleepy. VITAL SIGNS: TPR is 97.7, 84, 15. Blood pressure 121/76. HEENT: Negative. NECK: Supple. HEART: Regular rate and rhythm. LUNGS: Clear. ABDOMEN: Dressings dry and intact. Abdominal binder is on. EXTREMITIES: Without peripheral edema. ASSESSMENT: Exploratory laparotomy with lysis of adhesions. 1. Reduction of small bowel volvulus and closure of internal hernia. 2. Small-bowel resection. 3. Secondary enteroenterostomy to restore Lennox-en-Y small bowel anatomy. 4. Repair of recurrent incarcerated incisional hernia. 5. Placement of Interceed mesh. POSTOPERATIVE DIAGNOSES: Partial small bowel obstruction secondary to: 1. Volvulus at the biliary pancreatic limb, under Lennox limb. 2. Closure of intussusception at the jejunojejunostomy. 3. Recurrent incarcerated incisional hernia superior to present mesh repair. 4. Date of procedure: 07/07/2020. Surgeon: Maicol Polanco MD. PLAN: 1. Discontinue TRIM MOUNTER. 2. Discontinue continuous pulse ox and telemetry. 3. Discontinue Elena catheter. 4. Decrease IV of D5 LR to 100 mL/h. 5. Dilaudid 2 to 4 mg every 4 hours p.r.n. pain. 6. Zofran ODT 4 mg q.4 hours p.r.n. nausea. 7. Step 3 gastric bypass diet. 8. We will evaluate p.r.n. or in a.m. Inez Swann PA-C /[id number]
[2020-07-08] MEDS: Levofloxacin/Dextrose 5%-Water 500 MG in Premix Bag 1 BAG IV SCH (09:18)
[2020-07-08] MEDS: Pantoprazole 40 MG Delayed-Release Granules 1 Packet PO SCH (10:52)
[2020-07-08] MEDS: hydrOXYzine HCL 100 MG/2 ML SDV IM PRN (10:57)
[2020-07-08] MEDS ORDERED: MVI, Adult with Vitamin K 10 ML, Thiamine 200 MG, Zinc/Copper/Manganese/Selenium 1 ML i... IV SCH ×4 (16:00)
[2020-07-09] MEDS: Acetaminophen 500 MG Tab PO SCH ×3 (05:55→22:41)
[2020-07-09] MEDS: Heparin Sodium 5,000 Units/ML Vial SUBCUT SCH ×2 (05:56→17:36)
[2020-07-09] MEDS: HYDROmorphone 2 MG Tab PO PRN ×3 (05:56→17:32)
[2020-07-09] MEDS: Albuterol/Ipratropium 3.0-0.5 MG/3 ML Neb Soln INH SCH ×4 (07:12→23:00)
[2020-07-09] MEDS: Levofloxacin/Dextrose 5%-Water 500 MG in Premix Bag 1 BAG IV SCH (08:47)
[2020-07-09] MEDS: Bisacodyl 5 MG Tab PO SCH ×2 (08:47→22:41)
[2020-07-09] MEDS: Docusate Sodium 100 MG Cap PO SCH ×2 (08:47→22:41)
[2020-07-09] MEDS ORDERED: Cyanocobalamin (Vitamin B12) 1,000 MCG/ML SDV IM ONE (09:00)
--- NOTE | 2020-07-09 10:23 | PN ---
DATE OF SERVICE: 07/09/2020 SUBJECTIVE: Elizabeth is postoperative day. She has been up ambulating quite a bit. Oral intake 1225. Urine output 1800. Pain has been controlled with oral pain medication, and she is not passing any flatus yet. REVIEW OF SYSTEMS: Remainder of review of systems negative for any pertinent positives or negatives. OBJECTIVE: GENERAL: Elizabeth Sosa is a pleasant 44-year-old female. She is alert and orientated. VITAL SIGNS: TPR is 96.9, 86, 16, and blood pressure 99/60. HEENT: Negative. NECK: Supple. HEART: Regular rate and rhythm. LUNGS: Clear. ABDOMEN: Dressing is dry and intact. Abdominal binder is on. EXTREMITIES: Without peripheral edema. ASSESSMENT: Exploratory laparotomy with lysis of adhesions; 1. Reduction of small bowel volvulus and closure of internal hernia. 2. Small bowel resection. 3. Secondary enteroenterostomy to restore Lennox-en-Y small bowel anatomy. 4. Repair of recurrent incarcerated incisional hernia. 5. Placement of Interceed mesh. POSTOPERATIVE DIAGNOSES: Partial small bowel obstruction secondary to; 1. 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 2. Closure of intussusception at the jejunojejunostomy. 3. Recurrent incarcerated incisional hernia superior to present mesh repair. 4. Date of procedure 07/07/2020. Surgeon: Maicol Polanco MD. PLAN: 1. Colace 100 mg p.o. b.i.d. 2. Dulcolax 10 mg tablets p.o. b.i.d. 3. Saline lock IV. 4. We will evaluate p.r.n. or in the a.m. 5. Plan of discharge in the a.m. Inez Swann PA-C /[id number]
[2020-07-09] MEDS: Pantoprazole 40 MG Delayed-Release Granules 1 Packet PO SCH (11:18)
[2020-07-09] MEDS: Ondansetron 4 MG Tab.DIS PO PRN (14:52)
[2020-07-09] MEDS: Cyclobenzaprine 10 MG Tab PO PRN (16:29)
[2020-07-10] MEDS: Cyclobenzaprine 10 MG Tab PO PRN (02:35)
[2020-07-10] MEDS: Ondansetron 4 MG Tab.DIS PO PRN (02:35)
[2020-07-10] MEDS: Metoclopramide 10 MG/2 ML SDV IVPUSH PRN (03:17)
[2020-07-10] MEDS: hydrOXYzine HCL 100 MG/2 ML SDV IM PRN ×2 (03:28→12:39)
[2020-07-10] MEDS: HYDROmorphone 2 MG Tab PO PRN ×3 (04:55→18:31)
[2020-07-10] MEDS: Heparin Sodium 5,000 Units/ML Vial SUBCUT SCH ×2 (05:11→17:41)
[2020-07-10] MEDS: Acetaminophen 500 MG Tab PO SCH ×3 (05:12→21:51)
[2020-07-10] MEDS: Albuterol/Ipratropium 3.0-0.5 MG/3 ML Neb Soln INH SCH ×4 (07:04→21:43)
[2020-07-10] MEDS ORDERED: Polyethylene Glycol 3350 Powder 119 GM Bottle PO ONE (09:00)
[2020-07-10] MEDS: Bisacodyl 5 MG Tab PO SCH ×2 (09:27→21:50)
[2020-07-10] MEDS: Docusate Sodium 100 MG Cap PO SCH ×2 (09:27→21:50)
--- NOTE | 2020-07-10 10:10 | PN ---
DATE OF SERVICE: 07/10/2020 SUBJECTIVE: Elizabeth has not had a bowel movement yet and reports some increase in nausea. She has been up ambulating. Pain has been controlled with oral Dilaudid. REVIEW OF SYSTEMS: Remainder of review of systems negative for any pertinent positives and negatives. OBJECTIVE: GENERAL: Elizabeth Sosa is a pleasant 44-year-old female. She is alert and orientated. VITAL SIGNS: TPR is 98.9, 79, 18, blood pressure 107/63. HEENT: Negative. NECK: Supple. HEART: Regular rate and rhythm. LUNGS: Clear. ABDOMEN: Dressings dry and intact. Abdominal binder is on. EXTREMITIES: Without peripheral edema. ASSESSMENT: Exploratory laparotomy with lysis of adhesions: 1. Reduction of small bowel volvulus and closure of internal hernia. 2. Small bowel resection. 3. Secondary enteroenterostomy to restore Lennox-en-Y small bowel anatomy. 4. Repair of recurrent incarcerated incisional hernia. 5. Placement of Interceed mesh. POSTOPERATIVE DIAGNOSES: Partial small bowel obstruction secondary to: 1. 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 2. Closure of intussusception at the jejunojejunostomy. 3. Recurrent incarcerated incisional hernia superior to present mesh repair. 4. Date of procedure: 07/07/2020. Surgeon: Maicol Polanco MD. PLAN: Reglan 10 mg p.o. q.6 hours p.r.n. nausea, MiraLAX 119 g orally today. We will evaluate p.r.n. or in a.m. Inez Sawnn PA-C /[id number]
[2020-07-10] MEDS: Metoclopramide 10 MG Tab PO PRN ×2 (11:07→21:54)
[2020-07-10] MEDS: Pantoprazole 40 MG Delayed-Release Granules 1 Packet PO SCH (11:57)
[2020-07-11] MEDS: Heparin Sodium 5,000 Units/ML Vial SUBCUT SCH ×2 (05:17→18:08)
[2020-07-11] MEDS: Acetaminophen 500 MG Tab PO SCH ×3 (05:18→21:32)
[2020-07-11] MEDS: Albuterol/Ipratropium 3.0-0.5 MG/3 ML Neb Soln INH SCH ×4 (07:10→21:32)
[2020-07-11] MEDS: Dextrose 5%-Lactated Ringers 1,000 ML IV SCH ×2 (08:29→17:10)
[2020-07-11] MEDS: Bisacodyl 10 MG Supp RECTAL SCH ×2 (08:31→21:32)
[2020-07-11] MEDS: Metoclopramide 10 MG/2 ML SDV IV SCH ×3 (08:31→19:28)
[2020-07-11] MEDS: Docusate Sodium 100 MG Cap PO SCH ×2 (08:33→21:31)
[2020-07-11] MEDS: Bisacodyl 5 MG Tab PO SCH ×2 (08:36→21:32)
--- NOTE | 2020-07-11 09:01 | CR ---
Abdomen 2V AP Flat Upright CLINICAL HISTORY: Postop, no BM FINDINGS: Patient has had recent abdominal surgery. Contrast from the postprocedural upper GI is predominantly in the cecum. There is some colon distention to the mid transverse colon. Small intestinal configuration is nonacute. IMPRESSION: Right colon distention, normal caliber left colon. This may represent some ileus. Continued follow-up recommended
[2020-07-11] MEDS: Pantoprazole 40 MG Delayed-Release Granules 1 Packet PO SCH (10:38)
--- NOTE | 2020-07-11 11:41 | PN ---
DATE OF SERVICE: 07/11/2020 SUBJECTIVE: Elizabeth states that she has not been able to eat. She has only had 2 bites of egg and a little bit of soup for lunch. Around 8:30 p.m., she had a 200 mL emesis of undigested food. Elizabeth is concerned where this food came from because she has not been eating. The emesis was unknown to me. She reports continuation of severe nausea. Vital signs are stable. Total oral intake was 930 and urine output was 925 and she has not had a bowel movement. REVIEW OF SYSTEMS: Remainder of review of systems negative for any pertinent positives and negatives. OBJECTIVE: GENERAL: Elizabeth Sosa is a pleasant 44-year-old female. VITAL SIGNS: TPR is 95.3, 103, 16, blood pressure 95/55. HEENT: Negative. NECK: Supple. HEART: Regular rate and rhythm. LUNGS: Clear. ABDOMEN: Slightly distended. Abdominal binder is on. EXTREMITIES: Without peripheral edema. ASSESSMENT: 1. Postop ileus. 2. Exploratory laparotomy with lysis of adhesions. a. Reduction of small bowel volvulus and closure of internal hernia. b. Small-bowel resection. c. Secondary enterostomy to restore Lennox-en-Y small bowel anatomy. d. Repair of recurrent incarcerated incisional hernia. e. Placement of Interceed mesh. POSTOPERATIVE DIAGNOSES: 1. Partial small bowel obstruction secondary to: a. 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 b. Closure of intussusception of the jejunojejunostomy. c. Recurrent incarcerated incisional hernia superior to present mesh repair. Date of procedure: 07/07/2020. Surgeon: Maicol Polanco MD. PLAN: 1. NPO. 2. Communication order: May have oral medications with sips of water only. 3. Abdominal flat and upright x-ray urgent. 4. No straw. The patient has a Lennox-en-Y gastric bypass surgery. 5. IV D5 LR at 125 mL per hour. 6. Dulcolax suppository b.i.d. scheduled. 7. Reglan 10 mg q.6 hours scheduled. 8. We will evaluate p.r.n. or in a.m. Inez Swann PA-C /[id number]
[2020-07-11] MEDS: HYDROmorphone 2 MG Tab PO PRN (19:28)
[2020-07-12] MEDS: Dextrose 5%-Lactated Ringers 1,000 ML IV SCH (01:11)
[2020-07-12] MEDS: Metoclopramide 10 MG/2 ML SDV IV SCH ×4 (02:52→19:59)
[2020-07-12] MEDS: Heparin Sodium 5,000 Units/ML Vial SUBCUT SCH ×2 (05:46→17:28)
[2020-07-12] MEDS: Acetaminophen 500 MG Tab PO SCH ×3 (05:48→21:28)
--- NOTE | 2020-07-12 07:12 | CRLCR ---
INDICATION: Follow-up bowel obstruction. TECHNIQUE: Two views flat and upright of the abdomen and pelvis. COMPARISON: 07/11/2020. FINDINGS: Surgical oksana in the midline abdomen. Moderate amounts of contrast in the right and transverse colon. No free intraperitoneal air. Surgical oksana in the left lower quadrant. Mild to moderate gas distention of bowel loops in the left abdomen which are combination IV gas distended normal caliber colonic loops and a few mildly prominent gas distended small bowel loops with air-fluid levels. Findings are similar to the prior exam and could be related to an ileus or a component of early partial small bowel obstruction. Follow-up imaging will be helpful in reassessing. No free intraperitoneal air. Platelike atelectasis or scarring in the lung bases. Scattered calcifications in the abdomen and pelvis benign. Surgical clips right upper abdomen. Remainder negative. Dictated by Carlos Dangelo MD @ Jul 12 2020 7:10AM Signed by Dr. Carlos Dangelo @ Jul 12 2020 7:11AM
[2020-07-12] MEDS: Albuterol/Ipratropium 3.0-0.5 MG/3 ML Neb Soln INH SCH ×4 (07:30→20:07)
[2020-07-12] MEDS: HYDROmorphone 2 MG Tab PO PRN ×2 (07:57→20:07)
[2020-07-12] MEDS: Docusate Sodium 100 MG Cap PO SCH ×2 (08:04→19:59)
--- NOTE | 2020-07-12 10:13 | PN ---
DATE OF SERVICE: 07/12/2020 SUBJECTIVE: Elizabeth's vital signs have been stable. She was made n.p.o. yesterday after the flats and upright x-ray and inability to have a bowel movement, showed a possible ileus. She was given suppositories. Followup x-ray today showed moderate amounts of contrast in the right and transverse colon, oswy-ll-[id number] gas distention in the left abdomen. Combination of IV, gas-distended colonic loops and mild prominent gas-distended small loops. After rounds this morning, she did state she was passing some flatus. She is up, ambulating. Pain is minimal. No other associated signs and symptoms. OBJECTIVE: GENERAL: Elizabeth Sosa is a pleasant 44-year-old female. VITAL SIGNS: TPR is 97.3, 80, 16. Blood pressure 96/55. HEENT: Negative. NECK: Supple. HEART: Regular rate and rhythm. LUNGS: Clear. ABDOMEN: Not distended, very soft, nontender. EXTREMITIES: Without peripheral edema. ASSESSMENT: 1. Postop ileus. 2. Exploratory laparotomy with lysis of adhesions. a. Reduction of small bowel volvulus with closure of internal hernia. b. Small-bowel resection. c. Secondary enterostomy to restore Lennox-en-Y bowel anatomy. d. Repair of recurrent incarcerated incisional hernia. e. Placement of Interceed mesh. POSTOPERATIVE DIAGNOSES: 1. Partial small bowel obstruction secondary to: a. Volvulus of the biliary pancreatic limb under Lennox. b. Closure of intussusception of the jejunojejunostomy. c. Recurrent incarcerated incisional hernia superior to present mesh repair. Date of procedure: 07/07/2020. Surgeon: Maicol Polanco MD. PLAN: 1. Check x-ray flat and upright in a.m. 2. Start 2 gastric bypass diet. 3. Saline lock IV, saline 500 mL enema. 4. Continue to observe. 5. We will evaluate p.r.n. or in a.m. Inez Swann PA-C /[id number]
[2020-07-12] MEDS: Bisacodyl 10 MG Supp RECTAL SCH ×2 (10:31→19:59)
[2020-07-12] MEDS: Bisacodyl 5 MG Tab PO SCH ×2 (10:31→19:59)
[2020-07-12] MEDS: Pantoprazole 40 MG Delayed-Release Granules 1 Packet PO SCH (11:59)
[2020-07-13] MEDS: Metoclopramide 10 MG/2 ML SDV IV SCH ×2 (02:27→09:07)
[2020-07-13] MEDS: Acetaminophen 500 MG Tab PO SCH (05:38)
[2020-07-13] MEDS: Heparin Sodium 5,000 Units/ML Vial SUBCUT SCH (05:39)
--- NOTE | 2020-07-13 06:23 | CRLCR ---
Indication: Postoperative ileus Technique: Two views of the abdomen Comparison: 07/12/2020 Findings/Impression: : Colonic luminal contrast has progressed into the left colon and rectum. Postsurgical changes again seen. Stable osseous structures. Dictated by Jairo Narvaez MD @ 07/13/2020 6:21:32 AM Dictated by: Jairo Narvaez MD @ 07/13/2020 06:21:38 (Electronically Signed)
[2020-07-13] MEDS: Albuterol/Ipratropium 3.0-0.5 MG/3 ML Neb Soln INH SCH ×2 (07:18→11:35)
[2020-07-13 07:31] VITALS: BP 95/54; PULSE 68
[2020-07-13] MEDS: Docusate Sodium 100 MG Cap PO SCH (09:07)
[2020-07-13] MEDS: Bisacodyl 10 MG Supp RECTAL SCH (09:08)
[2020-07-13] MEDS: Bisacodyl 5 MG Tab PO SCH (09:08)
[2020-07-13] MEDS: HYDROmorphone 2 MG Tab PO PRN (10:50)
[2020-07-13] MEDS: Pantoprazole 40 MG Delayed-Release Granules 1 Packet PO SCH (10:51)
--- NOTE | 2020-07-14 09:24 | DISCH ---
ADMISSION DIAGNOSES: 1. Small bowel obstruction. 2. Status post Lennox-en-Y gastric bypass surgery, unspecified surgical malabsorption, B12 deficiency, vitamin D deficiency, general anxiety disorder, seizure disorder, and chronic bipolar disease. DISCHARGE DIAGNOSES: Exploratory laparotomy with lysis of adhesions: 1. Reduction of small bowel volvulus with closure of internal hernia. 2. Small-bowel resection. 3. Secondary enterostomy to restore Lennox-en-Y bowel anatomy. 4. Repair of recurrent incarcerated incisional hernia. 5. Placement of Interceed mesh. POSTOPERATIVE DIAGNOSES: 1. Partial small bowel obstruction secondary to: a. Volvulus of the biliary pancreatic limb under the Lennox limb. b. Closure of intussusception of the jejunojejunostomy. c. Recurrent incarcerated incisional hernia superior to present mesh repair. Date of procedure: 07/07/2020. Surgeon: Maicol Polanco MD. 1. Postop ileus. HISTORY: Elizabeth was admitted on 07/06/2020 from [facility] with a picture of small bowel obstruction. After preoperative evaluation and discussion of possible risks and possible complications, she wished to proceed with surgical procedure. HOSPITAL COURSE: Elizabeth had her surgery on 07/07/2020. She had no operative complications. On postoperative day #1, COMPUTER LAB ASSISTANT was discontinued. She was started on oral pain medication and a step 3 gastric bypass diet. On postoperative day 2, bowel stimulation was started. Oral intake and output adequate and she was started on bowel stimulation. On postoperative day 3, she reported some nausea and Reglan was prescribed orally and she was given 119 g of MiraLAX. On 07/10/2020, she did have an emesis of an undigested food. She was made n.p.o. IV was restarted and an abdominal x-ray was obtained. On 07/12/2020, the x-ray did improve. She was started on a step 2 gastric bypass diet and still did not have a bowel movement, so a saline enema was prescribed and she continued on the same bowel program. In mid morning on 07/12/2020, she started having bowel movement and felt much better. Oral intake on a step 2 was 1240. Her urine output was 1000 that was measured. She was unable to measure when she had bowel movements and she had 2 large bowel movements and 1 during the night. She reports on the morning of 07/13/2020 that she is ready to go home, feeling better, hungry. Vital signs are stable. Oral intake adequate. Activity good. Pain is controlled and she was started on a step 3 gastric bypass diet. PHYSICAL EXAMINATION: GENERAL: Elizabeth Sosa is a pleasant 44-year-old female. VITAL SIGNS: Height is 5 feet 5 inches. Weight is 172 pounds. TPR is 95.6, 66, 16. Blood pressure 92/47 HEENT: Negative. NECK: Supple. HEART: Regular rate and rhythm. LUNGS: Clear. ABDOMEN: Aquacel dressings on. There is some peeling at the top part of her incision. EXTREMITIES: Without peripheral edema. DISPOSITION: Discharged to home. CONDITION: Stable and improving. FOLLOWUP APPOINTMENTS: Inez Swann PA-C at [facility], 07/18/2020 at 10:15 a.m. HOME MEDICATIONS: Dilaudid 2 mg p.o. q.4 hours p.r.n. pain, #42. She is to resume all of her home medications. Tylenol 1000 mg p.o. q.8 hours, hydroxyzine 5 to 10 mg p.o. b.i.d. p.r.n. anxiety, Wellbutrin 75 mg p.o. daily, Imitrex 25 mg p.o. as directed p.r.n., multivitamin 1 chewable b.i.d., Nexium 40 mg p.o. daily, probiotics 2 b.i.d., vitamin B12 1000 mcg sublingual daily, vitamin B12 1000 mcg IM monthly, vitamin D3 125 mcg daily, Ventolin inhaler 2 puffs inhalation q.i.d. p.r.n. DIET: Step 3 gastric bypass diet. Drink 8 to 10 glasses of water a day. ACTIVITY: As tolerated. No lifting greater than 10 pounds for 6 weeks. OTHER ACTIVITY: Walk 6 times daily inside your home. Driving: Do not drive for 1 week or while on narcotic pain medication. Shower/bathing: May shower. Keep wound site clean and dry. Take off Aquacel dressing in 3 days. Wear abdominal binder for 6 weeks if tolerated. Notify provider if any fever, increased pain, swelling, redness, drainage, nausea, or vomiting. Use incentive spirometer 10 times every hour while awake for 1 week. /[id number]
--- NOTE | 2020-07-21 11:18 | OR ---
DATE OF PROCEDURE: 07/07/2020 SURGEON: Maicol Polanco MD PREOPERATIVE DIAGNOSIS: Partial small bowel obstruction. POSTOPERATIVE DIAGNOSES: 1. Partial small bowel obstruction secondary to: a. 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 b. 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 2. Recurrent incarcerated incisional hernia. OPERATIVE PROCEDURES: Exploratory laparotomy with lysis of adhesions and: 1. Reduction of small bowel volvulus and closure of internal hernia (48432). 2. Small bowel resection (26069). 3. Secondary enteroenterostomy to restore Lennox-en-Y small bowel anatomy (03789). 4. Repair of recurrent incarcerated incisional hernia (49852). 5. Placement of Interceed mesh to limit recurrent adhesion formation between pelvic and abdominal wall and underlying viscera (23902). ANESTHESIA: General. VICE PRESIDENT CONSULTING SERVICES: Inez Swann PA-C. INDICATIONS FOR PROCEDURE: This is a Lennox-en-Y gastric bypass patient presenting to the hospital in [place], [place], with a picture of small-bowel obstruction. After discussion among the staff there, we were contacted and decision was made to transfer the patient here for definitive treatment. Plan is to proceed with exploratory laparotomy, release of bowel obstruction with possible bowel resection, and the procedures as indicated. Potential risks including bleeding, infection, injury to underlying viscera, leaks from any GI tract closures, problems with bowel obstruction recurring over time were all reviewed, and the patient wishes to proceed. DETAILS OF PROCEDURE: The patient was taken to the operating room, and after general endotracheal anesthesia was induced, a Elena catheter was inserted, and the abdomen prepped and draped. Previously used midline incision from the umbilicus roughly a handsbreadth towards the xiphoid was made, carried down through the skin, subcutaneous tissue, and through the full thickness abdominal wall. Upon entering the peritoneal cavity, she was noted to have quite a bit in the way of adhesions that were encountered primarily between the transverse colon, omentum, and the anterior abdominal wall. Once these were taken down, the patient's small bowel was examined. She was noted to have a volvulus of the biliopancreatic limb underneath the Lennox limb. This was reduced and the mesenteric defect then closed with a running 2-0 silk stitch. The patient was also noted to have what appeared to be a marked edema of the jejunojejunostomy suggestive of chronic intussusception at that level with some narrowing of the point where the Lennox limb entered the jejunojejunostomy. Three components of the jejunojejunostomy were then divided as was as the underlying mesentery with RAVI oksana. Initial GI tract resection was then undertaken with a flgd-ol-hout anastomosis between what had been the distal most biliopancreatic limb to the proximal most common limb with an internal firing of the Endo-RAVI 60 mm stapler. Common opening was closed transversely with the same stapler and the angles anastomosed and reinforced with some 3-0 silk stitch and the mesenteric defect closed with a 2-0 silk stitch. The Lennox-en-Y anatomy was then reconstructed with secondary anastomosis between what had been the divided end of the Lennox limb. After a small segment of this was resected to the small bowel roughly 20 cm distal to the first anastomosis, same sequence of oksana was used along with the closure of the angles of the anastomosis and mesenteric defect. At this point, the patient had been noted to have a recurrent incarcerated incisional hernia containing some incarcerated omentum and loop of small bowel located just above the previously placed mesh. This at this point had been reduced and the peritoneum overlying it excised. Bilateral transversus abdominis plane blocks were then placed and the Interceed mesh was then placed underneath the incision from there down towards the pelvic and abdominal wall to limit recurrent adhesion formation. Midline fascia was then approximated with #2 Vicryl stitch, which included repair of the recurrent hernia. Subcutaneous tissue approximated with some 3-0 and 4-0 Vicryl stitch and the skin with oksana. The fascia was also anesthetized with 0.5% Marcaine mixed with lidocaine, and the patient was taken to the recovery room in satisfactory condition after skin oksana had been applied. Physician assistant professor of chemistry, Inez Swann, played an essential role in assisting in this case, helping to position the patient, retract structures as needed, as well as suturing and cutting sutures when indicated. Her presence improved patient safety and decreased the operative time. Maicol Polanco MD /[id number]
== END 2020-07-13 12:05 | disposition home or self-care (01) | DRG 326 ==
LOC: JP.MS 13:24
PROVIDERS: ADMIT Surgery; ATTEND Surgery
PROC: 0DS80ZZ Reposition Small Intestine, Open Approach (ICD-10-PCS; principal; 2020-07-07)
PROC: 0D160ZA Bypass Stomach to Jejunum, Open Approach (ICD-10-PCS; 2020-07-07)
PROC: 0DB80ZZ Excision of Small Intestine, Open Approach (ICD-10-PCS; 2020-07-07)
PROC: 0WQF0ZZ Repair Abdominal Wall, Open Approach (ICD-10-PCS; 2020-07-07)
PROC: 3E0M05Z Introduction of Adhesion Barrier into Peritoneal Cavity, Open Approach (ICD-10-PCS; 2020-07-07)
DX: K95.89 Other complications of other bariatric procedure (principal); K56.2 Volvulus; K43.0 Incisional hernia with obstruction, without gangrene; K56.1 Intussusception; K91.2 Postsurgical malabsorption, not elsewhere classified; K56.600 Partial intestinal obstruction, unspecified as to cause; K56.7 Ileus, unspecified; E53.8 Deficiency of other specified B group vitamins; E55.9 Vitamin D deficiency, unspecified; F41.1 Generalized anxiety disorder; G40.909 Epilepsy, unspecified, not intractable, without status epilepticus; F31.9 Bipolar disorder, unspecified; Z88.1 Allergy status to other antibiotic agents; Z88.8 Allergy status to other drugs, medicaments and biological substances; Z91.040 Latex allergy status; Z88.2 Allergy status to sulfonamides; Z91.030 Bee allergy status; Z79.899 Other long term (current) drug therapy; Y83.8 Other surgical procedures as the cause of abnormal reaction of the patient, or of later complication, without mention of misadventure at the time of the procedure
CPT/HCPCS: 36415; 74019; 74019-26; 74177; 74240; 74240-26; 80053; 82728; 83735; 83880; 84100; 85025; 88302; 88307; 94640; A9270-GY; C9113; J0171; J0330; J1100; J1170; J1644; J1956; J2020; J2185; J2405; J2704; J2710; J2765; J2795; J3010; J3410; J3411; J3420; J3475; J3490; J7050; J7120; J7121; J7620-GY; Q9967

== ENCOUNTER 2020-11-03 07:12 | Day surgery (SDC) | payer OTHER, MEDICARE ==
[~2020-11-03 07:12] MED LIST changes: -Dexamethasone 4 MG/ML SDV ONE; -Glycopyrrolate 0.2 MG/ML 5 ML MDV ONE; +Midazolam 1 MG/ML 2 ML SDV ONE; -Neostigmine Methylsulfate 1 MG/ML 5 ML Syringe ONE; -Ondansetron 4 MG/2 ML SDV ONE; -Rocuronium 50 MG/5 ML Vial ONE; -Succinylcholine 200 MG/10 ML MDV ONE; +fentaNYL 100 MCG/2 ML SDV ONE; -fentaNYL 250 MCG/5 ML SDV ONE
[2020-11-03] MEDS ORDERED: Cyanocobalamin (Vitamin B12) 1,000 MCG/ML SDV IM ONE (08:30)
[2020-11-03] MEDS ORDERED: Lactated Ringers 1,000 ML IV SCH (08:30)
[2020-11-03] MEDS: Glycopyrrolate 0.2 MG/ML 2 ML SDV IVPUSH ONE (08:49)
[2020-11-03] MEDS ORDERED: MVI, Adult with Vitamin K 10 ML, Thiamine 200 MG, Chromium/Copper/Mang/Selen/Zn 1 ML in... IV ONE ×4 (09:30)
[2020-11-03 11:06] VITALS: BP 115/77; PULSE 47
--- NOTE | 2020-11-10 13:43 | OR ---
DATE OF PROCEDURE: 11/03/2020 SURGEON: Maicol Polanco MD PREOPERATIVE DIAGNOSIS: Distal esophageal discomfort suggestive of reflux disease. POSTOPERATIVE DIAGNOSIS: Normal upper gastrointestinal endoscopic examination, status post Lennox-en-Y gastric bypass. OPERATIVE PROCEDURE: Upper GI endoscopy. ANESTHESIA: IV sedation. INDICATION FOR PROCEDURE: This is a 45-year-old status post a Lennox-en-Y gastric bypass with subsequent revision, presenting with some recent dysphasia. This appears to have improved after an upper endoscopy with dilation elsewhere on 09/10/2020, but now is having problems with lower chest pain and is brining up some clear mucous type material that she feels lobato somewhat. She has been taking Protonix and Prevacid, Tums and Carafate, which seem to have helped. Plan is to proceed with an upper GI endoscopy with biopsies and dilation as indicated. Potential risks including bleeding and perforation were discussed, and the patient wishes to proceed. DETAILS OF PROCEDURE: The patient was taken to the operating room, placed in a left lateral decubitus position. IV sedation was administered, after which the upper GI endoscope was passed orally through the length of the esophagus into the gastric pouch and through the gastrojejunostomy roughly 20 cm into the Lennox limb. Overall, the findings were completely normal. There were no areas of significant mucosal inflammation or stricturing and no any bile or other material within the Lennox limb more proximally. At that point, scope was then withdrawn and the procedure was then concluded. At this point, we will have the patient continue on the Protonix and/or Prevacid. She may be having some esophageal spasm, and we will give her Levsin 0.125 mg sublingual to take p.r.n. for the above-noted symptoms to see if that is helpful and should be following up with Inez Swann in December as arranged. If at that point, she is not reporting any improvement in the symptoms, upper GI x-ray with small bowel follow-through might be warranted. Maicol Polanco MD /[id number]
== END 2020-11-03 11:40 | disposition home or self-care (01) ==
LOC: JP.SDS 07:12
PROVIDERS: ATTEND Surgery
DX: K22.8 Other specified diseases of esophagus (principal); R47.02 Dysphasia; K21.9 Gastro-esophageal reflux disease without esophagitis; J45.909 Unspecified asthma, uncomplicated; Z98.84 Bariatric surgery status
CPT/HCPCS: 36415; 43235; 82607; 82728; 82746; 84425; J2250; J2704; J3010; J3411; J3420; J3490; J7120

== ENCOUNTER 2022-06-14 06:00 | Day surgery (SDC) | payer MEDICARE, MEDICAID ==
[2022-06-14] MEDS ORDERED: Cyanocobalamin (Vitamin B12) 1,000 MCG/ML SDV IM ONE (07:00)
[2022-06-14] MEDS ORDERED: Lactated Ringers 1,000 ML IV ONE (07:00)
[2022-06-14] MEDS ORDERED: Propofol 200 MG/20 ML SDV ONE (07:27)
[2022-06-14] MEDS ORDERED: fentaNYL 50 MCG/ML SDV ONE (07:27)
[2022-06-14] MEDS ORDERED: Glycopyrrolate 0.2 MG/ML 2 ML SDV IVPUSH ONE (07:30)
[2022-06-14] MEDS ORDERED: MVI, Adult with Vitamin K 10 ML, Thiamine 200 MG, Zinc/Copper/Manganese/Selenium 1 ML i... IV ONE ×4 (08:00)
[2022-06-14 10:14] VITALS: BP 107/71; PULSE 51
== END 2022-06-14 10:23 | disposition home or self-care (01) ==
LOC: JP.SDS 06:00
PROVIDERS: ATTEND Surgery
DX: R13.10 Dysphagia, unspecified (principal); R10.10 Upper abdominal pain, unspecified; F31.9 Bipolar disorder, unspecified; K58.9 Irritable bowel syndrome, unspecified; Z98.84 Bariatric surgery status; Z98.890 Other specified postprocedural states; Z79.899 Other long term (current) drug therapy; Z88.2 Allergy status to sulfonamides; Z91.040 Latex allergy status; Z88.0 Allergy status to penicillin; Z88.8 Allergy status to other drugs, medicaments and biological substances
CPT/HCPCS: 43235; J2704; J3010; J3411; J3420; J3490; J7120

== ENCOUNTER 2022-06-18 08:17 | Day surgery (SDC) | payer MEDICARE, MEDICAID ==
[2022-06-18] MEDS ORDERED: Meropenem 500 MG SDV ONE (08:20)
[2022-06-18] MEDS ORDERED: Bupivacaine 0.5% 50 ML MDV ONE ×2 (08:20→08:22)
[2022-06-18] MEDS ORDERED: Lidocaine 1% with EPINEPHrine 1:100,000 50 ML MDV ONE (08:20)
[2022-06-18] MEDS ORDERED: Propofol 200 MG/20 ML SDV ONE (08:36)
[2022-06-18] MEDS ORDERED: fentaNYL 250 MCG/5 ML SDV ONE (08:36)
[2022-06-18] MEDS ORDERED: Ondansetron 4 MG/2 ML SDV ONE (08:36)
[2022-06-18] MEDS ORDERED: Dexamethasone 4 MG/ML SDV ONE (08:36)
[2022-06-18] MEDS ORDERED: Glycopyrrolate 0.2 MG/ML 5 ML MDV ONE (08:36)
[2022-06-18] MEDS ORDERED: Succinylcholine 200 MG/10 ML MDV ONE (08:36)
[2022-06-18] MEDS ORDERED: Neostigmine Methylsulfate 1 MG/ML 5 ML Syringe ONE (08:36)
[2022-06-18] MEDS ORDERED: Rocuronium 50 MG/5 ML Vial ONE (08:36)
[2022-06-18] MEDS ORDERED: Meropenem 500 MG in Sodium Chloride 0.9% 50 ML IV ONE (09:00)
[2022-06-18] MEDS ORDERED: Albuterol/Ipratropium 3.0-0.5 MG/3 ML Neb Soln NEB ONE (09:00)
[2022-06-18] MEDS ORDERED: Scopolamine 1.5 MG Transdermal Patch TOP SCH (09:00)
[2022-06-18] MEDS ORDERED: Dextrose 5%-Lactated Ringers 1,000 ML IV SCH (09:00)
[2022-06-18 10:01] VITALS: BP 98/55; PULSE 65
[2022-06-18 10:10] LABS: ESTIMATED GFR 109 mL/min (>60)
[2022-06-18] MEDS ORDERED: Ketamine 500 MG/5 ML MDV IV SCH (10:15)
[2022-06-18] MEDS ORDERED: Ketamine 17 MG in Sodium Chloride 0.9% 19.83 ML IV SCH (10:15)
[2022-06-18] MEDS ORDERED: fentaNYL 100 MCG/2 ML SDV ONE (10:28)
[2022-06-18] MEDS ORDERED: Ropivacaine 35 ML, dexAMETHasone 8 MG, EPINEPHrine 0.4 MG, Sodium Chloride 0.9% 42.6 ML NERVRT SCH ×4 (10:30)
== END 2022-06-18 10:45 | disposition home or self-care (01) ==
LOC: JP.SDS 08:17
PROVIDERS: ATTEND Surgery
DX: K56.609 Unspecified intestinal obstruction, unspecified as to partial versus complete obstruction (principal); Z53.09 Procedure and treatment not carried out because of other contraindication; U07.1 COVID-19
CPT/HCPCS: 36415; 80053; 82728; 83735; 84100; 85027; 93005; 94640; A9270; J3490; J7121; U0002; J0330; J1100; J2185; J2405; J2704; J2710; J3010; J7620

== ENCOUNTER 2022-07-06 05:22 | Inpatient (IN) | payer MEDICARE, MEDICAID ==
[2022-07-06] MEDS: Dextrose 5%-Lactated Ringers 1,000 ML IV SCH ×3 (05:48→22:04)
[2022-07-06] MEDS ORDERED: Scopolamine 1.5 MG Transdermal Patch TOP SCH (06:00)
[2022-07-06] MEDS ORDERED: Meropenem 500 MG SDV ONE (06:36)
[2022-07-06] MEDS ORDERED: Bupivacaine 0.5% 50 ML MDV ONE (06:36)
[2022-07-06] MEDS ORDERED: Lidocaine 1% with EPINEPHrine 1:100,000 50 ML MDV ONE (06:37)
[2022-07-06] MEDS ORDERED: Albuterol/Ipratropium 3.0-0.5 MG/3 ML Neb Soln NEB ONE (07:00)
[2022-07-06] MEDS ORDERED: Meropenem 500 MG in Sodium Chloride 0.9% 50 ML IV ONE (07:00)
[2022-07-06] MEDS ORDERED: Dexamethasone 4 MG/ML SDV ONE (07:16)
[2022-07-06] MEDS ORDERED: Rocuronium 50 MG/5 ML Vial ONE (07:16)
[2022-07-06] MEDS ORDERED: fentaNYL 250 MCG/5 ML SDV ONE ×2 (07:16→09:14)
[2022-07-06] MEDS ORDERED: Glycopyrrolate 0.2 MG/ML 5 ML MDV ONE (07:16)
[2022-07-06] MEDS ORDERED: Ondansetron 4 MG/2 ML SDV ONE (07:16)
[2022-07-06] MEDS ORDERED: Neostigmine Methylsulfate 1 MG/ML 5 ML Syringe ONE (07:16)
[2022-07-06] MEDS ORDERED: Propofol 200 MG/20 ML SDV ONE (07:16)
[2022-07-06] MEDS ORDERED: Ropivacaine 35 ML, dexAMETHasone 8 MG, EPINEPHrine 0.4 MG, Sodium Chloride 0.9% 42.6 ML NERVRT SCH ×4 (07:30)
[2022-07-06] MEDS ORDERED: Ketamine 17 MG in Sodium Chloride 0.9% 19.83 ML IV SCH (07:30)
[2022-07-06] MEDS ORDERED: Ketamine 500 MG/5 ML MDV IV SCH (07:30)
[2022-07-06] MEDS ORDERED: Naloxone 0.4 MG/ML SDV IVPUSH PRN (07:47)
[2022-07-06] MEDS ORDERED: HYDROmorphone/Normal Saline 6 MG/30 ML PCA Vial IV PRN (07:47)
[2022-07-06] MEDS ORDERED: diphenhydrAMINE 50 MG/ML SDV IVPUSH PRN ×2 (07:47→12:00)
[2022-07-06] MEDS ORDERED: Ondansetron 4 MG/2 ML SDV IVPUSH PRN ×2 (07:47→12:00)
[2022-07-06] MEDS ORDERED: diphenhydrAMINE 25 MG Cap PO PRN (07:47)
[2022-07-06] MEDS ORDERED: ePHEDrine 50 MG/ML SDV ONE (08:46)
[2022-07-06] MEDS ORDERED: Lactated Ringers 1,000 ML ONE (08:46)
[2022-07-06] MEDS ORDERED: Linezolid 600 MG/300 ML Premix Bag IRR ONE (08:46)
[2022-07-06] MEDS ORDERED: Naloxone 0.4 MG/ML SDV IV PRN (09:00)
[2022-07-06] MEDS ORDERED: Ondansetron 4 MG/2 ML SDV IVPUSH ONE (11:00)
[2022-07-06] MEDS ORDERED: Cyclobenzaprine 10 MG Tab PO PRN (11:49)
[2022-07-06] MEDS ORDERED: Acetaminophen 500 MG Tab PO PRN (12:00)
[2022-07-06] MEDS ORDERED: hydrOXYzine HCl 50 MG/ML SDV IM PRN (12:00)
[2022-07-06] MEDS ORDERED: Metoclopramide 10 MG/2 ML SDV IVPUSH PRN (12:00)
[2022-07-06] MEDS ORDERED: Labetalol 20 MG/4 ML Syringe IVPUSH PRN (12:00)
[2022-07-06] MEDS ORDERED: Albuterol/Ipratropium 3.0-0.5 MG/3 ML Neb Soln INH PRN (12:00)
[2022-07-06] MEDS ORDERED: Pantoprazole 40 MG Vial IVPUSH SCH (14:00)
[2022-07-06] MEDS: Meropenem 500 MG in Sodium Chloride 0.9% 50 ML IV SCH ×2 (14:18→19:57)
[2022-07-06] MEDS: Albuterol/Ipratropium 3.0-0.5 MG/3 ML Neb Soln INH SCH ×2 (15:00→19:59)
[2022-07-06] MEDS: Acetaminophen 500 MG Tab PO SCH ×2 (15:44→23:19)
[2022-07-06] MEDS: MVI, Adult with Vitamin K 10 ML, Thiamine 200 MG, Zinc/Copper/Manganese/Selenium 1 ML i... IV SCH ×4 (15:45)
[2022-07-06] MEDS: Heparin Sodium 5,000 Units/ML Vial SUBCUT SCH (17:36)
[2022-07-06] MEDS: lamoTRIgine 25 MG Tab PO SCH (19:59)
[2022-07-07] MEDS: Meropenem 500 MG in Sodium Chloride 0.9% 50 ML IV SCH ×4 (01:58→19:42)
[2022-07-07] MEDS: Dextrose 5%-Lactated Ringers 1,000 ML IV SCH ×2 (04:50→11:12)
[2022-07-07] MEDS ORDERED: Iopamidol 612 MG/ML 30 ML SDV PO ONE (05:27)
[2022-07-07] MEDS: Heparin Sodium 5,000 Units/ML Vial SUBCUT SCH ×2 (05:49→17:01)
[2022-07-07] MEDS: Albuterol/Ipratropium 3.0-0.5 MG/3 ML Neb Soln INH SCH ×4 (07:27→20:33)
[2022-07-07] MEDS: Acetaminophen 500 MG Tab PO SCH ×2 (08:13→16:58)
[2022-07-07] MEDS: Celecoxib 200 MG Cap PO SCH ×2 (08:15→20:19)
[2022-07-07] MEDS: SCOPOLAMINE PATCH CHECK TOP SCH (08:16)
[2022-07-07] MEDS ORDERED: Calcium Carbonate 500 MG Tab.Chew PO PRN (08:35)
[2022-07-07] MEDS ORDERED: lamoTRIgine 25 MG Tab PO SCH (09:00)
[2022-07-07] MEDS: Famotidine 20 MG Tab PO SCH ×2 (09:15→20:21)
[2022-07-07] MEDS: Pantoprazole 40 MG Tab.CR PO SCH (09:18)
[2022-07-07] MEDS: Bisacodyl 5 MG Tab PO SCH ×2 (09:18→20:19)
[2022-07-07] MEDS: Docusate Sodium 100 MG Cap PO SCH ×2 (09:18→20:19)
[2022-07-07] MEDS: MVI, Adult with Vitamin K 10 ML, Thiamine 200 MG, Zinc/Copper/Manganese/Selenium 1 ML i... IV SCH ×4 (15:40)
[2022-07-07] MEDS: lamoTRIgine 25 MG Tab PO SCH (20:20)
[2022-07-07] MEDS: Montelukast 10 MG Tab PO SCH (20:21)
[2022-07-08] MEDS: Acetaminophen 500 MG Tab PO SCH ×4 (00:35→23:39)
[2022-07-08] MEDS: Dextrose 5%-Lactated Ringers 1,000 ML IV SCH ×2 (02:23→11:33)
[2022-07-08] MEDS: Heparin Sodium 5,000 Units/ML Vial SUBCUT SCH ×2 (05:07→17:40)
[2022-07-08] MEDS: Albuterol/Ipratropium 3.0-0.5 MG/3 ML Neb Soln INH SCH ×4 (07:01→21:21)
[2022-07-08] MEDS: Pantoprazole 40 MG Tab.CR PO SCH (07:39)
[2022-07-08] MEDS: Docusate Sodium 100 MG Cap PO SCH ×2 (08:20→21:21)
[2022-07-08] MEDS: Bisacodyl 5 MG Tab PO SCH ×2 (08:20→21:21)
[2022-07-08] MEDS: Celecoxib 200 MG Cap PO SCH ×2 (08:20→21:21)
[2022-07-08] MEDS: SCOPOLAMINE PATCH CHECK TOP SCH (08:20)
[2022-07-08] MEDS: Famotidine 20 MG Tab PO SCH ×2 (08:20→21:23)
[2022-07-08] MEDS ORDERED: Cyanocobalamin (Vitamin B12) 1,000 MCG/ML SDV IM ONE (09:00)
[2022-07-08] MEDS ORDERED: HYDROmorphone 2 MG Tab PO PRN (11:58)
[2022-07-08] MEDS ORDERED: lamoTRIgine 25 MG Tab PO SCH (21:00)
[2022-07-08] MEDS: Montelukast 10 MG Tab PO SCH (21:24)
[2022-07-09] MEDS: Heparin Sodium 5,000 Units/ML Vial SUBCUT SCH (06:14)
[2022-07-09] MEDS: Albuterol/Ipratropium 3.0-0.5 MG/3 ML Neb Soln INH SCH (07:03)
[2022-07-09] MEDS: Acetaminophen 500 MG Tab PO SCH (07:18)
[2022-07-09] MEDS: Pantoprazole 40 MG Tab.CR PO SCH (07:18)
[2022-07-09 07:21] VITALS: BP 92/46; PULSE 71
[2022-07-09] MEDS: Bisacodyl 5 MG Tab PO SCH (08:36)
[2022-07-09] MEDS: Celecoxib 200 MG Cap PO SCH (08:36)
[2022-07-09] MEDS: Docusate Sodium 100 MG Cap PO SCH (08:36)
[2022-07-09] MEDS: Famotidine 20 MG Tab PO SCH (08:37)
== END 2022-07-09 09:45 | disposition home or self-care (01) | DRG 329 ==
LOC: JP.SDS 05:22 → JP.ICU 11:36
PROVIDERS: ADMIT Surgery; ATTEND Surgery
PROC: 0DB80ZZ Excision of Small Intestine, Open Approach (ICD-10-PCS; principal; 2022-07-06)
PROC: 0WUF0JZ Supplement Abdominal Wall with Synthetic Substitute, Open Approach (ICD-10-PCS; principal; 2022-07-06)
PROC: 0DBA0ZZ Excision of Jejunum, Open Approach (ICD-10-PCS; principal; 2022-07-06)
PROC: 0DS80ZZ Reposition Small Intestine, Open Approach (ICD-10-PCS; principal; 2022-07-06)
PROC: 0DBH0ZZ Excision of Cecum, Open Approach (ICD-10-PCS; principal; 2022-07-06)
DX: K43.0 Incisional hernia with obstruction, without gangrene (principal); K56.2 Volvulus; K63.89 Other specified diseases of intestine; F31.9 Bipolar disorder, unspecified; E11.9 Type 2 diabetes mellitus without complications; E78.5 Hyperlipidemia, unspecified; E03.9 Hypothyroidism, unspecified; E66.01 Morbid (severe) obesity due to excess calories; G47.33 Obstructive sleep apnea (adult) (pediatric); E50.9 Vitamin A deficiency, unspecified; J45.909 Unspecified asthma, uncomplicated; E53.9 Vitamin B deficiency, unspecified; E53.8 Deficiency of other specified B group vitamins; G40.909 Epilepsy, unspecified, not intractable, without status epilepticus; Z90.89 Acquired absence of other organs; Z98.890 Other specified postprocedural states; Z79.899 Other long term (current) drug therapy; Z90.710 Acquired absence of both cervix and uterus; Z82.49 Family history of ischemic heart disease and other diseases of the circulatory system; Z98.84 Bariatric surgery status; Z68.29 Body mass index [BMI] 29.0-29.9, adult
CPT/HCPCS: 74240; 74240-26; 88302; 88305; 88307; 94640; A9270-GY; C9113; J0131; J0171; J1100; J1170; J1644; J2020; J2185; J2405; J2704; J2710; J2765; J2795; J3010; J3410; J3411; J3420; J3490; J7120; J7121; J7620; Q9967

== ENCOUNTER 2023-02-01 06:19 | Inpatient (IN) | payer MEDICARE, MEDICAID ==
[2023-02-01] MEDS ORDERED: Bupivacaine 0.5% 50 ML MDV ONE (06:45)
[2023-02-01] MEDS ORDERED: Meropenem 500 MG SDV ONE (06:45)
[2023-02-01] MEDS ORDERED: Lidocaine 1% with EPINEPHrine 1:100,000 50 ML MDV ONE (06:46)
[2023-02-01] MEDS ORDERED: fentaNYL 250 MCG/5 ML SDV ONE (07:14)
[2023-02-01] MEDS ORDERED: Dextrose 5%-Lactated Ringers 1,000 ML IV SCH (07:15)
[2023-02-01] MEDS ORDERED: Glycopyrrolate 0.2 MG/ML 5 ML MDV ONE (07:15)
[2023-02-01] MEDS ORDERED: Dexamethasone 4 MG/ML SDV ONE (07:15)
[2023-02-01] MEDS ORDERED: Propofol 200 MG/20 ML SDV ONE (07:15)
[2023-02-01] MEDS ORDERED: Neostigmine Methylsulfate 1 MG/ML 5 ML Syringe ONE (07:15)
[2023-02-01] MEDS ORDERED: Rocuronium 50 MG/5 ML Vial ONE ×2 (07:15→10:36)
[2023-02-01] MEDS ORDERED: Ondansetron 4 MG/2 ML SDV ONE (07:15)
[2023-02-01] MEDS ORDERED: Scopolamine 1.5 MG Transdermal Patch TRDERM SCH (07:15)
[2023-02-01] MEDS ORDERED: Albuterol/Ipratropium 3.0-0.5 MG/3 ML Neb Soln NEB ONE (08:00)
[2023-02-01] MEDS ORDERED: Naloxone 0.4 MG/ML SDV IV PRN (08:00)
[2023-02-01] MEDS ORDERED: Meropenem 500 MG in Sodium Chloride 0.9% 50 ML IV ONE (08:15)
[2023-02-01] MEDS ORDERED: Linezolid 600 MG/300 ML Premix Bag IRR ONE (09:56)
[2023-02-01] MEDS ORDERED: ePHEDrine 50 MG/ML SDV ONE (10:07)
[2023-02-01] MEDS: HYDROmorphone/Normal Saline 6 MG/30 ML PCA Vial IV PRN (10:24)
[2023-02-01] MEDS ORDERED: Lactated Ringers 1,000 ML ONE (10:35)
[2023-02-01] MEDS ORDERED: fentaNYL 100 MCG/2 ML SDV ONE (12:07)
[2023-02-01] MEDS ORDERED: Labetalol 20 MG/4 ML Syringe IVPUSH PRN (13:00)
[2023-02-01] MEDS ORDERED: Acetaminophen 500 MG Tab PO PRN (13:00)
[2023-02-01] MEDS ORDERED: hydrOXYzine HCL 100 MG/2 ML SDV IM PRN (13:00)
[2023-02-01] MEDS ORDERED: Albuterol/Ipratropium 3.0-0.5 MG/3 ML Neb Soln INH PRN (13:00)
[2023-02-01] MEDS ORDERED: diphenhydrAMINE 50 MG/ML SDV IVPUSH PRN (13:00)
[2023-02-01] MEDS ORDERED: Metoclopramide 10 MG/2 ML SDV IVPUSH PRN (13:00)
[2023-02-01] MEDS: Albuterol/Ipratropium 3.0-0.5 MG/3 ML Neb Soln INH SCH ×2 (14:40→20:13)
[2023-02-01] MEDS: Meropenem 500 MG in Sodium Chloride 0.9% 50 ML IV SCH ×2 (15:07→20:14)
[2023-02-01] MEDS: MVI, Adult with Vitamin K 10 ML, Thiamine 200 MG, Zinc/Copper/Manganese/Selenium 1 ML i... IV SCH ×4 (15:10)
[2023-02-01] MEDS: Cyclobenzaprine 10 MG Tab PO PRN (15:10)
[2023-02-01] MEDS ORDERED: Pantoprazole 40 MG Vial IVPUSH SCH (16:00)
[2023-02-01] MEDS ORDERED: Lactated Ringers 500 ML IV ONE (16:15)
[2023-02-01] MEDS: Acetaminophen 500 MG Tab PO SCH ×2 (17:01→17:05)
[2023-02-01] MEDS: Heparin Sodium 5,000 Units/ML Vial SUBCUT SCH (20:06)
[2023-02-01] MEDS: Dextrose 5%-Lactated Ringers 1,000 ML IV SCH (23:07)
[2023-02-02] MEDS: Acetaminophen 500 MG Tab PO SCH ×3 (02:13→17:11)
[2023-02-02] MEDS: Meropenem 500 MG in Sodium Chloride 0.9% 50 ML IV SCH ×2 (02:14→08:53)
[2023-02-02 04:37] LABS: HEMATOCRIT 29.7 % (34.3-46.0); HEMOGLOBIN 9.8 g/dL (11.2-15.5); IMMATURE GRAN ABSOLUTE AUTO 0.04 K/uL (0.00-0.23); IMMATURE GRAN PERCENT AUTO 0.4 % (0.0-0.7); LYMPHOCYTES ABSOLUTE AUTO 0.49 K/uL (0.8-3.3); LYMPHOCYTES PERCENT AUTO 5.2 % (11.4-47.7); MEAN CORPUSCULAR HEMOGLOBIN 29.3 pg (31.6-35.5); MEAN CORPUSCULAR VOLUME 88.9 fL (81.4-99.0); MONOCYTES ABSOLUTE AUTO 0.58 K/uL (0.20-0.90); MONOCYTES PERCENT AUTO 6.2 % (3.3-12.6); NEUTROPHILS ABSOLUTE AUTO 8.26 K/uL (1.0-7.6); NEUTROPHILS PERCENT AUTO 88.2 % (40.0-78.1); PLATELET COUNT,PLT 186 K/uL (130-375); RED BLOOD CELL COUNT 3.34 M/uL (3.77-5.24); WHITE BLOOD CELL COUNT,WBC 9.4 K/uL (3.2-11.0)
[2023-02-02 05:08] LABS: A/G RATIO 0.9 (1.2-2.2); ALANINE AMINOTRANSFERASE,ALT 34 U/L (12-78); ALBUMIN 2.6 g/dL (3.4-5.0); ALKALINE PHOSPHATASE 68 U/L (46-116); ANION GAP 6.4 mmol/L (5.0-14.0); ASPARTATE AMNIOTRANSFERASE,AST 25 U/L (15-37); BILIRUBIN TOTAL 0.2 mg/dL (0.2-1.0); BLOOD UREA NITROGEN,BUN 9 mg/dL (7-18); CALCIUM 7.9 mg/dL (8.5-10.1); CARBON DIOXIDE,CO2 29 mmol/L (21-32); CHLORIDE,CL 105 mmol/L (100-108); CREATININE 0.7 mg/dL (0.6-1.0); EST CRCL DRUG DOSING (CG) 94.01 mL/min; ESTIMATED GFR 108 mL/min (>60); GLUCOSE RANDOM 158 mg/dL (74-106); MAGNESIUM 1.7 mg/dL (1.8-2.4); PHOSPHORUS 3.7 mg/dL (2.5-4.9); POTASSIUM,K 4.1 mmol/L (3.6-5.2); PRO B-TYPE NATRIUR PEPT,BNPPRO 145 pg/mL (5-125); PROTEIN TOTAL,TP 5.5 g/dL (6.4-8.2); SODIUM,NA 140 mmol/L (140-148)
[2023-02-02] MEDS: Dextrose 5%-Lactated Ringers 1,000 ML IV SCH ×2 (05:35→14:18)
[2023-02-02] MEDS: Albuterol/Ipratropium 3.0-0.5 MG/3 ML Neb Soln INH SCH ×4 (07:02→20:40)
[2023-02-02] MEDS: HYDROmorphone/Normal Saline 6 MG/30 ML PCA Vial IV PRN (07:43)
[2023-02-02] MEDS ORDERED: Ondansetron 4 MG Tab.DIS PO PRN (08:19)
[2023-02-02] MEDS: Heparin Sodium 5,000 Units/ML Vial SUBCUT SCH ×2 (08:35→20:40)
[2023-02-02] MEDS: Bisacodyl 5 MG Tab PO SCH ×2 (08:46→20:40)
[2023-02-02] MEDS: Docusate Sodium 100 MG Cap PO SCH ×2 (08:46→20:40)
[2023-02-02] MEDS: SCOPOLAMINE PATCH CHECK TOP SCH (08:53)
[2023-02-02] MEDS: Magnesium Sulfate/Water 2 GM/50 ML BAG IV SCH ×3 (10:23→22:45)
[2023-02-02] MEDS: MVI, Adult with Vitamin K 10 ML, Thiamine 200 MG, Zinc/Copper/Manganese/Selenium 1 ML i... IV SCH ×4 (15:12)
[2023-02-02] MEDS: Pantoprazole 40 MG Delayed-Release Granules 1 Packet PO SCH (17:10)
[2023-02-02] MEDS: Cyclobenzaprine 10 MG Tab PO PRN (22:46)
[2023-02-03] MEDS: Dextrose 5%-Lactated Ringers 1,000 ML IV SCH (01:40)
[2023-02-03] MEDS: Acetaminophen 500 MG Tab PO SCH ×3 (02:59→17:29)
[2023-02-03] MEDS: Magnesium Sulfate/Water 2 GM/50 ML BAG IV SCH ×4 (03:00→21:37)
[2023-02-03] MEDS: HYDROmorphone/Normal Saline 6 MG/30 ML PCA Vial IV PRN ×2 (05:29→21:24)
[2023-02-03] MEDS: Albuterol/Ipratropium 3.0-0.5 MG/3 ML Neb Soln INH SCH ×4 (07:16→21:40)
[2023-02-03] MEDS: Docusate Sodium 100 MG Cap PO SCH ×2 (08:28→21:37)
[2023-02-03] MEDS: Bisacodyl 5 MG Tab PO SCH ×2 (08:28→21:37)
[2023-02-03] MEDS: Heparin Sodium 5,000 Units/ML Vial SUBCUT SCH ×2 (08:28→21:36)
[2023-02-03] MEDS: SCOPOLAMINE PATCH CHECK TOP SCH (08:29)
[2023-02-03] MEDS ORDERED: Cyanocobalamin (Vitamin B12) 1,000 MCG/ML SDV IM ONE (09:00)
[2023-02-03] MEDS: Pantoprazole 40 MG Delayed-Release Granules 1 Packet PO SCH ×2 (15:52→16:10)
[2023-02-04] MEDS: Cyclobenzaprine 10 MG Tab PO PRN (01:03)
[2023-02-04] MEDS: Acetaminophen 500 MG Tab PO SCH ×4 (01:03→18:16)
[2023-02-04] MEDS: Ondansetron 4 MG/2 ML SDV IVPUSH PRN ×2 (01:27→08:30)
[2023-02-04] MEDS ORDERED: HYDROmorphone/Normal Saline 6 MG/30 ML PCA Vial IV PRN (01:40)
[2023-02-04] MEDS: Magnesium Sulfate/Water 2 GM/50 ML BAG IV SCH (04:37)
[2023-02-04] MEDS: Albuterol/Ipratropium 3.0-0.5 MG/3 ML Neb Soln INH SCH ×4 (07:23→21:21)
[2023-02-04] MEDS ORDERED: HYDROmorphone 2 MG Tab PO PRN (08:03)
[2023-02-04] MEDS: Heparin Sodium 5,000 Units/ML Vial SUBCUT SCH ×2 (08:40→21:19)
[2023-02-04] MEDS: Dextrose 5%-Lactated Ringers 1,000 ML IV SCH ×2 (08:46→19:11)
[2023-02-04] MEDS: Docusate Sodium 100 MG Cap PO SCH ×2 (09:24→21:26)
[2023-02-04] MEDS: Bisacodyl 5 MG Tab PO SCH ×2 (09:24→21:26)
[2023-02-04] MEDS: Metoclopramide 10 MG/2 ML SDV IVPUSH SCH ×3 (10:36→21:20)
[2023-02-04] MEDS: Pantoprazole 40 MG Delayed-Release Granules 1 Packet PO SCH ×2 (15:45→15:53)
[2023-02-04] MEDS ORDERED: diphenhydrAMINE 25 MG Cap PO PRN (18:32)
[2023-02-04] MEDS ORDERED: Naloxone 0.4 MG/ML SDV IVPUSH PRN (18:32)
[2023-02-04] MEDS ORDERED: diphenhydrAMINE 50 MG/ML SDV IVPUSH PRN (18:32)
[2023-02-04] MEDS ORDERED: Ondansetron 4 MG/2 ML SDV IVPUSH PRN (18:32)
[2023-02-04] MEDS: Pantoprazole 40 MG Vial IVPUSH SCH (19:37)
[2023-02-04] MEDS: HYDROmorphone/Normal Saline 6 MG/30 ML PCA Vial IV PRN (19:41)
[2023-02-05] MEDS: Acetaminophen 500 MG Tab PO SCH ×3 (02:04→17:32)
[2023-02-05] MEDS: Metoclopramide 10 MG/2 ML SDV IVPUSH SCH ×4 (04:38→22:05)
[2023-02-05] MEDS: Dextrose 5%-Lactated Ringers 1,000 ML IV SCH ×2 (05:11→16:24)
[2023-02-05] MEDS: Albuterol/Ipratropium 3.0-0.5 MG/3 ML Neb Soln INH SCH ×4 (06:55→22:09)
[2023-02-05] MEDS: Bisacodyl 5 MG Tab PO SCH ×2 (08:15→22:04)
[2023-02-05] MEDS: Docusate Sodium 100 MG Cap PO SCH ×2 (08:16→22:05)
[2023-02-05] MEDS: Heparin Sodium 5,000 Units/ML Vial SUBCUT SCH ×2 (08:18→22:04)
[2023-02-05] MEDS ORDERED: Magnesium Hydroxide 400 MG/5 ML Susp 30 ML Cup PO ONE (09:00)
[2023-02-05] MEDS: Pantoprazole 40 MG Vial IVPUSH SCH (17:33)
[2023-02-05] MEDS: HYDROmorphone/Normal Saline 6 MG/30 ML PCA Vial IV PRN (22:34)
[2023-02-06] MEDS: Acetaminophen 500 MG Tab PO SCH ×3 (03:30→18:17)
[2023-02-06] MEDS: Metoclopramide 10 MG/2 ML SDV IVPUSH SCH ×4 (03:34→21:25)
[2023-02-06] MEDS: Dextrose 5%-Lactated Ringers 1,000 ML IV SCH (03:34)
[2023-02-06] MEDS: Albuterol/Ipratropium 3.0-0.5 MG/3 ML Neb Soln INH SCH ×4 (06:57→21:21)
[2023-02-06] MEDS: Heparin Sodium 5,000 Units/ML Vial SUBCUT SCH ×2 (07:40→21:25)
[2023-02-06] MEDS ORDERED: Sodium Chloride 0.9% 10 ML Syringe IV PRN (08:29)
[2023-02-06] MEDS: Docusate Sodium 100 MG Cap PO SCH ×2 (09:17→21:21)
[2023-02-06] MEDS: Bisacodyl 5 MG Tab PO SCH ×2 (09:17→21:21)
[2023-02-06] MEDS: HYDROmorphone 2 MG Tab PO PRN ×2 (09:30→14:40)
[2023-02-06] MEDS: Pantoprazole 40 MG Vial IVPUSH SCH (18:17)
[2023-02-07] MEDS: Acetaminophen 500 MG Tab PO SCH ×2 (04:21→09:46)
[2023-02-07] MEDS: Metoclopramide 10 MG/2 ML SDV IVPUSH SCH ×2 (04:39→09:45)
[2023-02-07 05:37] VITALS: BP 112/66; PULSE 78
[2023-02-07] MEDS: Albuterol/Ipratropium 3.0-0.5 MG/3 ML Neb Soln INH SCH ×2 (07:06→11:05)
[2023-02-07] MEDS: Docusate Sodium 100 MG Cap PO SCH (08:01)
[2023-02-07] MEDS: Bisacodyl 5 MG Tab PO SCH (08:01)
[2023-02-07] MEDS: HYDROmorphone 2 MG Tab PO PRN ×2 (08:04→12:44)
[2023-02-07] MEDS: Heparin Sodium 5,000 Units/ML Vial SUBCUT SCH (08:04)
== END 2023-02-07 13:40 | disposition home or self-care (01) | DRG 329 ==
LOC: JP.SDS 06:19 → JP.MS 12:00
PROVIDERS: ADMIT Surgery; ATTEND Surgery
PROC: 0DS80ZZ Reposition Small Intestine, Open Approach (ICD-10-PCS; principal; 2023-02-01)
PROC: 0WUF0JZ Supplement Abdominal Wall with Synthetic Substitute, Open Approach (ICD-10-PCS; 2023-02-01)
PROC: 0WPF0JZ Removal of Synthetic Substitute from Abdominal Wall, Open Approach (ICD-10-PCS; 2023-02-01)
DX: K43.0 Incisional hernia with obstruction, without gangrene (principal); K56.2 Volvulus; F41.1 Generalized anxiety disorder; G47.00 Insomnia, unspecified; G40.909 Epilepsy, unspecified, not intractable, without status epilepticus; K21.9 Gastro-esophageal reflux disease without esophagitis; F31.9 Bipolar disorder, unspecified; E11.9 Type 2 diabetes mellitus without complications; E78.5 Hyperlipidemia, unspecified; E03.9 Hypothyroidism, unspecified; Z79.890 Hormone replacement therapy; Z98.890 Other specified postprocedural states; Z90.49 Acquired absence of other specified parts of digestive tract; Z79.4 Long term (current) use of insulin; Z90.710 Acquired absence of both cervix and uterus; Z98.84 Bariatric surgery status; Z90.89 Acquired absence of other organs; Z79.899 Other long term (current) drug therapy; Z88.8 Allergy status to other drugs, medicaments and biological substances; Z88.1 Allergy status to other antibiotic agents; Z91.040 Latex allergy status; Z88.2 Allergy status to sulfonamides; Z87.891 Personal history of nicotine dependence
CPT/HCPCS: 36415; 51702; 74019; 74019-26; 80053; 83735; 83880; 84100; 85025; 88302; 94640; A9270-GY; C1713; C1781; C9113; J0131; J0171; J0456; J1100; J1170; J1644; J2020; J2185; J2405; J2704; J2710; J2765; J2795; J3010; J3410; J3411; J3420; J3475; J3490; J7120; J7121; J7620